=== PATIENT | male | born 1960 | race Caucasian/White ===

== ENCOUNTER 2024-09-30 08:53 | Outpatient (CLI) | payer BC, SELFPAY | END 2024-09-30 23:59 | disposition home or self-care (01) | LOC: LAB 08:55 | PROVIDERS: PCP Family Medicine; Visit Provider Internal Medicine Gastroenterology | DX: R10.13 Epigastric pain (principal); Z94.4 Liver transplant status ==

== ENCOUNTER 2024-10-20 08:18 | Outpatient (CLI) | payer BC, SELFPAY ==
--- NOTE | 2024-10-20 08:45 | CT_ITS ---
FINAL REPORT TECHNIQUE: Axial CT of the abdomen and pelvis, without and with IV contrast. This study was performed with techniques to keep radiation doses as low as reasonably achievable, (ALARA). Individualized dose reduction techniques using automated exposure control or adjustment of mA and/or kV according to the patient''s size were employed. CLINICAL HISTORY: Epigastric pain-prior pancreatitis/liver transplant pt states last pancreatitis was 10 years ago. FINDINGS: Abdomen: Lung bases are clear. There are surgical changes of liver transplant with a left hepatic lobe present. Portal vein is patent. Left kidney is heterogeneous with multiple mixed density masses, likely a combination of simple and complex cysts. There is left nephrolithiasis with a 17 mm renal pelvic stone. There is severe left renal scarring. Patient is status postsplenectomy. Pancreas, adrenal glands and right kidney are normal Postcontrast imaging of the kidneys shows no mass or obstruction. There is a central abdominal wall hernia containing omental fat. Abdominal wall defect measures 4 cm and is located 10 cm superior to the umbilicus. Bowel is unremarkable. No bowel obstruction or fluid collection is seen. Pelvis: The appendix is not visualized. There are no findings of appendicitis. There is mild urinary bladder wall thickening. Prostate is unremarkable. Pelvic bowel loops are unremarkable. No fluid collection or adenopathy is seen. IMPRESSION: No acute findings. Atrophic left kidney with multiple complex cysts and a nonobstructing stone. Reviewed, Interpreted and Dictated by Jose M Frias MD Transcribed by Asha Green Authenticated and [facility]
[2024-10-20] MEDS: SODIUM CHLORIDE 0.9% 10ML SYR (RAD ONLY) 10 ML IV (08:58)
[2024-10-20] MEDS: IOPAMIDOL-370 (76%);100ML BOTTLE 75 ML IV (08:58)
[2024-10-20] MEDS: BARIUM SULFATE(READI-CAT2);450ML BOTTLE 450 ML PO (08:58)
== END 2024-10-20 23:59 | disposition home or self-care (01) ==
PROVIDERS: PCP Family Medicine; Visit Provider Internal Medicine Gastroenterology
DX: N26.1 Atrophy of kidney (terminal) (principal); N20.0 Calculus of kidney; N28.1 Cyst of kidney, acquired; K85.90 Acute pancreatitis without necrosis or infection, unspecified; Z94.4 Liver transplant status
CPT/HCPCS: 74178; Q9967

== ENCOUNTER 2024-12-23 12:57 | Day surgery (SDC) | payer BC, SELFPAY ==
[2024-12-21 16:09] VITALS: BMI 33.0
[2024-12-23 13:17] VITALS: BP 114/75; PULSE 69; RESP 18; TEMP 36.3; O2SAT 96; BMI 33.0
--- NOTE | 2024-12-23 13:43 | EXP.HP ---
History of Present Illness *Admission Date: 12/23/24 *History of present illness: Mr. Chavez is a 64-year-old gentleman who is here for diagnostic EGD. 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 He did have a donor liver transplantation at [facility] in 2019 or 2018 and has done very well. He is on tacrolimus and mycophenolate and his liver chemistries have remained normal. They have not done any dose reduction of his immunosuppressants. The patient has had some bloating in the past with cold sweats. He did have an EGD with ma in June 2021 and this did show bile reflux with some linear nodular gastropathy. He was placed on BNO and has been on omeprazole. More recently he has had burning dyspepsia (not reflux or heartburn) in the mid epigastrium. This occurs usually before lunchtime and sometimes when he is active. He was previously placed on colestipol for his bile acid diarrhea. He does report some abdominal distention/bloating and occasional belching. He reports loose stools that we will alternate with regular and some bowel frequency. His states that he does get some shortness of breath or difficulty getting a good deep breath. He has had some minor baseline cardiac evaluation with PCP or prior to liver transplant. He recently did have to double his dose of omeprazole and these attacks of burning pain and discomfort have been going on for a couple of months but have only occurred 5 or 6 times. He does state that we did do fecal elastase testing in [place] but I do not have these results. He did have a colonoscopy with me in January 2020 and did not have any adenomatous polyps. He did have mild left-sided diverticulosis. He is on a fiber pill daily. [facility] Disclaimer: The information contained in this section may have been updated after the patient was seen, as this information can be updated by other users. Medical History ADHIKARI (nonalcoholic steatohepatitis) Surgical History History of splenectomy History of cholecystectomy Liver transplant recipient Family History Other No significant family history Social History (Updated 12/23/24 @ 13:19 by Randi Jean Baptiste RN) Smoking Status: Never smoker alcohol intake: never substance use type: denies use current occupational status: previously employed and retired Travel in the last 8 weeks?: Inside the [place] Review of Systems Review of Systems Review of systems (narrative): Negative *Cardiovascular Comments: Negative *Gastrointestinal Comments: Negative *Genitourinary Comments: Negative *Musculoskeletal Comments: Negative *Neurologic Comments: Negative Meds Home Medications and Allergies Home Medications ?Medication ?Instructions ?Recorded ?Confirmed ?Type alendronate 70 mg tablet (Fosamax) 70 mg PO WEEKLY 09/30/24 12/21/24 History allopurinol 300 mg tablet 300 mg PO DAILY 09/30/24 12/21/24 History ztyxf-c-ylnhydbixxeys 400 unit 400 unit PO TID PRN Gastric Reflux 09/30/24 12/21/24 History tablet (Beano) colchicine 0.6 mg tablet 0.6 mg PO BID 09/30/24 12/21/24 History colestipol 1 gram tablet (Colestid) 2 g PO HS 09/30/24 12/21/24 History magnesium oxide 500 mg PO BID 09/30/24 12/21/24 History mycophenolate mofetil 250 mg 250 mg PO BID 09/30/24 12/21/24 History capsule omeprazole 40 mg capsule,delayed 40 mg PO DAILY 09/30/24 12/21/24 History release prednisone 5 mg tablet 5 mg PO DAILY 09/30/24 12/21/24 History tacrolimus 0.5 mg capsule, 0.5 mg PO Q12H 09/30/24 12/21/24 History immediate-release tamsulosin 0.4 mg capsule (Flomax) 0.4 mg PO DAILY 09/30/24 12/21/24 History tramadol 50 mg tablet 50 mg PO HS PRN Pain 09/30/24 12/21/24 History trazodone 50 mg tablet 50 mg PO HS 09/30/24 12/21/24 History ursodiol 300 mg capsule 300 mg PO TID 09/30/24 12/21/24 History calcium 600 mg (as 1 tab PO DAILY 12/21/24 12/21/24 History carbonate)-vitamin D3 10 mcg (400 unit) tablet (Calcium 600 + D(3)) multivitamin 1 tab PO DAILY 12/21/24 12/21/24 History New Prescriptions to Start Prescriptions: Allergies Allergy/AdvReac Type Severity Reaction Status Date / Time hydrocodone AdvReac Other Verified 12/23/24 13:34 Exam Data for Last 24 hours Vital signs and Labs for Last 24 Hours: Temp Pulse Resp BP Pulse Ox O2 Del Method 97.4 F L 69 18 114/75 96 Room Air 12/23/24 13:17 12/23/24 13:17 12/23/24 13:17 12/23/24 13:17 12/23/24 13:17 12/23/24 13:17 I & O for Last 24 hours: Intake & Output 12/20/24 12/21/24 12/22/24 12/23/24 23:59 23:59 23:59 23:59 Weight 237 lb 237 lb *Routine HEENT Exam Head: Present normocephalic Eye: Present EOMI and PERRL ENT: Present mucous membranes moist *Routine Neck Exam Neck: Present supple *Routine Respiratory Exam Respiratory: Present CTA bilaterally *Routine Cardiovascular Exam Cardiovascular: Present RRR *Routine Abdominal Exam Abdominal: Present soft and normoactive bowel sounds; Absent tenderness *Routine Rectal Exam Rectal:: deferred *Routine Genitalia Exam Genitalia:: deferred *Routine Extremities Exam Extremities: Absent cyanosis, clubbing or edema *Routine Skin Exam Skin: Present warm; Absent rash *Routine Neurological Exam Neurological: Present alert and oriented X3 Assessment and Plan *Assessment and plan (1) Epigastric pain: Status: Acute Category: Medical Code(s): R10.13 - Epigastric pain (2) Dyspepsia: Status: Acute Category: Medical Code(s): R10.13 - Epigastric pain (3) Bloating: Status: Acute Category: Medical Code(s): R14.0 - Abdominal distension (gaseous) Plan A/P: 1. Epigastric abdominal pain/dyspepsia intermittently with bloating is the preprocedural diagnosis. The patient will be anesthetized/sedated using MAC sedation. The patient has been seen and examined. Cardiac and lung assessment prior to the examination is stable. Proceed with planned diagnostic EGD.
--- NOTE | 2024-12-23 13:43 | EXP.ANES.CKL ---
[facility] Disclaimer: The information contained in this section may have been updated after the patient was seen, as this information can be updated by other users. Medical History ADHIKARI (nonalcoholic steatohepatitis) Surgical History History of splenectomy History of cholecystectomy Liver transplant recipient Family History Other No significant family history Social History (Updated 12/23/24 @ 13:19 by Randi Jean Baptiste RN) Smoking Status: Never smoker alcohol intake: never substance use type: denies use current occupational status: previously employed and retired Travel in the last 8 weeks?: Inside the [facility] Anesthesia Checklist Patient Identification Patient Identification: Verbal (Name & ) Structural Data Admitted From: Home Planned Operative Procedure/s: egd Consent for Planned Operative Procedure(s) Verified: Yes Airway Assessment Mallampati Score:: Class II TMJ Mobility Assessed: Yes Dentition: Edentulous Neurological Assessment Level of Consciousness: Awake, Alert and Appropriate Anesthesia Plan Anesthesia Risk discussed: Yes Anesthesia Plan: Verified ASA Class: III Anesthesia Type: MAC
--- NOTE | 2024-12-23 13:44 | P.PCN_ITS ---
[facility] Procedure Note Date: 12/23/24 Time: 13:55 Procedure Note:: Upper Endoscopy Procedure Report: Esophagogastroduodenoscopy with cold biopsies Endoscopost: Joao Tello II, MD Referring Physician: Syeda Clark DO, [address], [place] [address] Date of Procedure: December 23, 2024 Equipment: Olympus GIF-1100 standard upper endoscope Sedation: MAC sedation Indications: Mr. Chavez is a 64-year-old gentleman who is here for diagnostic EGD. 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 He did have a donor liver transplantation at [facility] in 2019 or 2018 and has done very well. He is on tacrolimus and mycophenolate and his liver chemistries have remained normal. They have not done any dose reduction of his immunosuppressants. The patient has had some bloating in the past with cold sweats. He did have an EGD with [facility] in June 2021 and this did show bile reflux with some linear nodular gastropathy. He has been on omeprazole. More recently he has had burning dyspepsia (not reflux or heartburn) in the mid epigastrium. This occurs usually before lunchtime and sometimes when he is active. He was previously placed on colestipol for his bile acid diarrhea. He does report some abdominal distention/bloating and occasional belching. He reports loose stools that we will alternate with regular and some bowel frequency. His states that he does get some shortness of breath or difficulty getting a good deep breath. He has had some minor baseline cardiac evaluation with PCP or prior to liver transplant. He recently did have to double his dose of omeprazole and these attacks of burning pain and discomfort have been going on for a couple of months but have only occurred 5 or 6 times. He does state that we did do fecal elastase testing in [place] but I do not have these results. He did have a colonoscopy with me in January 2020 and did not have any adenomatous polyps. He did have mild left-sided diverticulosis. He is on a fiber pill daily. After his office visit in September 2024, I did recommend that he begin agul-bot-kwtqbmh herbal Iberogast and psyllium Konsyl. He has had resolution of his symptoms with the Iberogast and is doing much better. Procedure: Prior to the procedure, a history and physical exam was performed, and patient's medications and allergies were reviewed. The risks, benefits and alternatives of the sedation and procedure were discussed with the patient. All questions were answered and informed consent was obtained. The patient was brought to the procedure room. Patient identification and proposed procedure were verified by the physician and the nurse. The patient was placed in a left lateral decubitus position and the scope was passed under direct vision. Throughout the proce dure, the patient's blood pressure, pulse, and oxygen saturations were monitored continuously. The upper GI endoscopy was accomplished without difficulty. The patient tolerated the procedure well. Findings: The scope was passed directly into the upper esophagus and advanced to the third and fourth portion of the duodenum. A cold biopsy was taken from the third portion of the duodenum for disaccharidase assay. The post bulbar duodenum and duodenal bulb were normal with normal mucosa and conniventes. The scope was withdrawn through a normal duodenal bulb and pylorus into the stomach. There was some bile reflux with mild to moderate linear reactive gastropathy of the antrum. The body and fundus of the stomach were normal. Upon retroflexion there was no hiatal hernia. Cold biopsies were taken from the antrum. The scope was then withdrawn into the esophagus. There was no evidence of reflux esophagitis or Meier's. The remainder of the esophageal mucosa was normal. Impression: 1. Bile reflux with mild to moderate linear reactive gastropathy of antrum Plan: I will follow-up the biopsies and disaccharidase assay. The patient has had clinical improvement of his dyspepsia.
[2024-12-23 13:54] VITALS: BP 122/76; PULSE 66; RESP 16; TEMP 36.6; O2SAT 92
[2024-12-23 14:04] VITALS: BP 120/72; PULSE 64; RESP 16; O2SAT 92
[2024-12-23 14:14] VITALS: BP 142/87; PULSE 61; RESP 16; TEMP 36.6; O2SAT 93
[2024-12-23 14:24] VITALS: BP 138/71; PULSE 62; RESP 26; TEMP 36.6; O2SAT 94
[2024-12-28 16:25] LABS: Interpretation Notes (.); Lactase 23.14 (>/= 14.0); Maltase 161.8 (>/= 110.0); Palatinase 7.37 (>/= 8.5); Reference Notes (.); Sucrase 27.76 (>/= 25.0)
== END 2024-12-23 14:36 | disposition home or self-care (01) ==
PROVIDERS: PCP Family Medicine; Visit Provider Internal Medicine Gastroenterology
PROC: 0DJ08ZZ Inspection of Upper Intestinal Tract, Via Natural or Artificial Opening Endoscopic (ICD-10-PCS; CPT 43239; principal; 2024-12-23 14:30)
DX: K29.50 Unspecified chronic gastritis without bleeding (principal); Z88.5 Allergy status to narcotic agent; Z79.899 Other long term (current) drug therapy; Z94.4 Liver transplant status
CPT/HCPCS: 43239; 82657; J2003; J2704

== ENCOUNTER 2025-01-05 12:50 | Outpatient (CLI) | payer BC, SELFPAY ==
--- OUTSIDE RECORDS SUMMARY | 2024-11-06 05:30 | XMS_ITS ---
Author Organization [facility] Address [address] [place], [place] [id number] Care Team Providers Care Chemical Operations And Training Name Role Phone Syeda Clark Primary Care Provider [phone] Rosenda Ames Unavailable [phone] Results Component Value Reference Range Notes URIC ACID (905) Reviewed date:11/10/2024 03:07:31 PM Interpretation:Low Performing Lab:[facility], [facility] [id number], [id number] Del Munson Notes/Report: 0 0 0 URIC ACID 3.5 4.0-8.0 mg/dL Therapeutic ta rget for gout patients: <6.0 mg/dL SED RATE BY MODIFIED WESTERG CHELSIE (809) Reviewed date:11/10/2024 03:07:31 PM Interpretation:Normal Performing Lab:[facility] [id number], [place] [id number] Del Munson Notes/Report: 0 0 0 SED RATE BY MODIFIED CITLALY 2 < OR = 20 mm/h C-REACTIVE PROTEIN (4420) Reviewed date:11/10/2024 03:07:31 PM Interpretation:Normal Performing Lab:[facility], [facility] ([facility]) [id number], [place] [id number] Del Munson Notes/Report: 0 0 0 C-REACTIVE PROTEIN 3.8 <8.0 mg/L REASON FOR VISIT labs Problems Problem Type SNOMED Code ICD Code Onset Dates Problem Status W/U Status Risk Notes Problem Idiopathic chronic gout, multiple sites, 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) Active confirmed Problem Primary generalised osteoarthritis (422478893) Primary generalized (osteo)arthriti s (M15.0) Active confirmed Encounters Encounter Location Date Provider Diagnosis [facility] [address] [place], [place] [id number] 11/06/2024 Rosendaaidan Ames Rheumatoid arthritis with rheumatoid factor, unspecified M05.9 ; Idiopathic chronic gout, multiple sites, without tophus (tophi) M1A.09X0 ; Autoimmune hepatitis K75.4 ; Primary generalized (osteo)arthritis M15.0 and Encounter for therapeutic drug level monitoring Z51.81 Assessments Encounter Date Diagnosis (ICD Code) Assessment Notes Treatment Notes Treatment Clinical Notes Section Notes 11/06/2024 Rheumatoid arthritis with rheumatoid factor, unspecified (ICD-10 - M05.9) 11/06/2024 Idiopathic chronic gout, multiple sites, without tophus (tophi) (ICD-10 - M1A.09X0) 11/06/2024 Autoimmune hepatitis (ICD-10 - K75.4) 11/06/2024 Primary generalized (osteo)arthritis (ICD-10 - M15.0) 11/06/2024 Encounter for therapeutic drug level monitoring (ICD-10 - Z51.81) Plan Of Treatment Pending Test Test Name Order Date Urine toxicology 11/06/2024 Progress Notes * DIETERMARIESILVIADOB:1960 (64 yo M)Acc No.[id number]:11/06/2024 Progress Note Patient: SILVIA GEORGE Provider: Ofelia Ames PA-C :1960 A ge:64 Y S ex:Male Date:11/06/2024 Address:[address] [place], [place] [id number] Pcp:Syeda Clark Subjective: * Chief Complaints: * 1 . Labs. * HPI: P EG: labs order by [facility]. * Medical History: Objective: * Vitals: Assessment: * Assessment: 1. R heumatoid arthritis with rheumatoid factor, unspecified - M05.9 (Primary) 2 . I diopathic chronic gout, multiple sites, without tophus (tophi) - M1A.09X0 3 . A utoimmune hepatitis - K75.4 4 . P rimary generalized (osteo)arthritis - M15.0 5 . E ncounter for therapeutic drug level monitoring - Z51.81 Plan: * Treatment: 2. I diopathic chronic gout, multiple sites, without tophus (tophi) L AB: URIC ACID (905) (Collection Date & Time - 11/06/2024 10:29 AM) 3. E ncounter for therapeutic drug level monitoring L AB: Urine toxicology * Procedures: P t labs drawn with 23g needle to the LA. Patient tolerated well and pressure dressing applied. PARKER ARVIZU. * Procedure Codes: 3 6415 VENIPUNCT, ROUTINE* * Billing Information: * Visit Code: * Procedure Codes: 36464 VENIPUNCT, ROUTINE*. * Sign off status: Completed true * Provider: Ofelia Ames PA-C Date: 0 11/06/2024 Generated for Giovani jacobs/Krishna/Viraj on: 0 01/05/2025 12:53 PM EDT
--- OUTSIDE RECORDS SUMMARY | 2025-01-05 12:53 | XMS_ITS | Encounter Summary ---
Author Organization [email or web address] ([place], [place], [place], [place]) Address [address] [place] [address] Care Team Providers Care X Ray Examiner Of Aircraft Name Role Phone Darek Rodas MD Primary Care Provider [phone] Reason for Referral * CAT Scan (Routine) - Closed Specialty Diagnoses / Procedures Referred By Contac t Referred To Contact Radiology Diagnoses Nonintractable headache, unspecified chronicity pattern, unspecified headache type Procedures CT brain without IV contrast Darek Rodas MD [address] [place] [address] Phone: tel: fax: Referral ID Status Reason Start Date Expiration Date Visits Re quested Visits Authorized [id number] Closed 07/24/2022 01/20/2023 1 1 Encounter Details Date Type Department Care Team (Latest Contact Info) Description 07/24/2022 Outside Orders [facility] Central Scheduling [address] [place] [address] Darek Rodas MD [address] [place] [address] Nonintractable headache, unspecified chronicity pattern, unspecified headache type (Primary Dx) Social History Tobacco Use Types Packs/Day Years Used Date Smoking Tobacco: Never Assessed Sex and Gender Information Value Date Recorded Sex Assigned at Not on file Legal Sex Male 5:20 PM CDT Gender Identity Not on file Sexual Orientation Not on file documented as of this encounter Plan of Treatment Not on file documented as of this encounter Results * CT brain without IV contrast (07/24/2022 12:33 PM EST) Anatomical Region Laterality Modality Brain, Head Computed Tomogra phy (CT) 07/24/2022 3:50 PM EST Impressions 07/24/2022 4:10 PM EST No acute intracranial process. Images reviewed, interpreted, and dictated by Seferino Riggs MD Narrative 07/24/2022 4:10 PM EST Name: SILVIA CARRILLO : [address] HISTORY: Headache. Prior history of liver transplant COMPARISON: None . TECHNIQUE: Multiple axial CT images were performed from the foramen magnum to the vertex without enhancement. Individualized dose reduction techniques using automated exposure control or adjustment of the mA and/or kV according to patient size were employed. FINDINGS: The ventricles are normal in size. There is no evidence of hemorrhage . No masses or edema identified. No abnormal extra-axial fluid is seen. Lobular mucoperiosteal thickening in the left maxillary and right sphenoid sinus is consistent with chronic sinusitis. Procedure Note Seferino Riggs MD - 07/24/2022 Name: SILVIA CARRILLO : [address] HISTORY: Headache. Prior history of liver transplant COMPARISON: None . TECHNIQUE: Multiple axial CT images were performed from the foramen magnum to the vertex without enhancement. Individualized dose reduction techniques using automated exposure control or adjustment of the mA and/or kV according to patient size were employed. FINDINGS: The ventricles are normal in size. There is no evidence of hemorrhage . No masses or edema identified. No abnormal extra-axial fluid is seen. Lobular mucoperiosteal thickening in the left maxillary and right sphenoid sinus is consistent with chronic sinusitis. IMPRESSION: No acute intracranial process. Images reviewed, interpreted, and dictated by Seferino Riggs MD Darek Rodas MD IMG CT ORDERABLES Final Result documented in this encounter Visit Diagnoses Diagnosis Nonintractable headache, unspecified chronicity pattern, unspecified headache type- Primary Nonintractable headache, unspecified chronicity pattern, unspecified headache type documented in this encounter Care Teams X Ray Examiner Of Aircraft Relationship Specialty Start Date End Date Darek Rodas MD PCP - General Family Medicine 07/24/22 documented as of this encounter
--- OUTSIDE RECORDS SUMMARY | 2025-01-05 12:53 | XMS_ITS | Encounter Summary ---
Author Organization [employer] ([place], [place], [place], [place]) Address [address] [place] [address] Care Team Providers Care Health Sciences Department Chair Name Role Phone Darek Rodas MD Primary Care Provider [phone] Encounter Details Date Type Department Care Team (Late st Contact Info) Description 01/06/2024 Outside Orders [facility] Admitting [address] [place] [id number] Syeda Clark, DO [address] [place] [phone] Left wrist pain (Primary Dx) Social History Tobacco Use Types Packs/Day Years Used Date Smoking Tobacco: Never Assessed Employment Answer Date Recorded Help finding and keeping a job Not on file 0 06/20/2023 Family and Community Support Answer Surjit e Recorded Help with Day to Day Activities Not on file 06/20/2023 Feeling Lonely or Isolated Not on file 06/20 Educational Attainment Answer Date Thierno rded Speak language other than Telugu at home Not on file 06/20/2023 Want help with school or training Not on file 06/20/2023 Substance Use Answer Date Recorded Used prescription meds for non-medical reasons N ot on file 06/20/2023 Used illegal drugs past 12 months Not on file 06/20/2023 Sex and Gender Information Value Date Recorded Sex Assigned at Not on file Legal Sex Male 5:20 PM CDT Gender Identity Not on file Sexual Orientation Not on file documented as of this encounter Plan of Treatment Not on file documented as of this encounter Visit Diagnoses Diagnosis Left wrist pain- Primary Pain in joint, forearm documented in this encounter Care Teams Health Sciences Department Chair Relationship Specialty Start Date End Date Darek Rodas MD PCP - General Family Medicine 07/24/22 documented as of this encounter
--- OUTSIDE RECORDS SUMMARY | 2025-01-05 12:53 | XMS_ITS | Encounter Summary ---
[facility] Organization [facility] Address [address] [place] [address] Care Team Providers Care Special Projects Coordinator Name Role Phone Syeda Clark MD Primary Care Provider [phone] Encounter Details Date Type Department Care Team (Late st Contact Info) Description 11/10/2024 Results Follow-Up [facility] [address] [address] Michi Torres DO [address] [id number] Social History Tobacco Use Types Packs/Day Years Used Date Smoking Tobacco: Never Passive Smoke Exposure: Past Smokeless Tobacco: Never Alcohol Use Standard Drinks/Week Comments Never 0 (1 standard drink = 0.6 oz pur e alcohol) Sex and Gender Information Value Date Recorded Sex Assigned at Male 09/23/2023 12:22 PM EDT Legal Sex Male 11:58 AM EDT Gender Identity Male 09/23/2023 12:22 PM EDT Sexual Orientation Not on file documented as of this encounter Plan of Treatment Upcoming Encounters Date Type Department Care Team (Late st Contact Info) Description 04/05/2025 8:30 AM EST Office Visit [facility] [address] [address] Mariaelena Coyle APRN [address] [id number] documented as of this encounter Visit Diagnoses Not on filedocumented in this encounter Care Teams Special Projects Coordinator Relationship Specialty Start Date End Date Syeda Clark MD [address] [place] [address] PCP - General Family Medicine 08/21/23 documented as of this encounter
--- OUTSIDE RECORDS SUMMARY | 2025-01-05 12:53 | XMS_ITS | Encounter Summary ---
Author Organization [employer] ([place], [place], [place], [place]) Address [address] [place] [address] Care Team Providers Care Polishing Wheel Repairer Name Role Phone aDrek Rodas MD Primary Care Provider [phone] Encounter Details Date Type Department Care Team (Late st Contact Info) Description 10/01/2024 Outside Orders [facility] Admitting [address] [place] [address] Elisha GARCIA Md, MD Joao [address] [facility] [address] [place] [id number] Epigastric pain (Primary Dx) Social History Tobacco Use [...] Date Thierno rded Speak language other than [place]er at home Not on file 06/20/2023 Want [...] documented as of this encounter Results * Pancreatic Elastase Fecal by Immunoassay(SENDOUT) (10/01/2024 4:41 PM EDT) Pancreatic Elastase, Fecal 756 >=100 ug/g 10/07/2024 9:05 AM EDT [facility] Comment: REFERENCE INTERVAL: Pancreatic Elastase Fecal by Immunoassay Less than 100 ug/g............Severe insufficiency 100 - 199 ug/g................Moderate insufficiency 200 ug/g or greater...........Normal INTERPRETIVE INFORMATION: Pancreatic Elastase Fecal by Immunoassay Reference intervals do not apply for infants less than one month old. Performed By: [facility] [address] [id number] Decorator Mannequin: José Miguel Jones MD, PhD CLIA Number: [id number] Stool 10/01/2024 4:41 PM EDT 10/01/2024 4:41 PM EDT us Joao Tello II, Md, MD MICROBIOLOGY - GENERAL ORD ERABLES Final Result [facility] [address] [place] [address], [facility] [phone] documented in this encounter Visit Diagnoses Diagnosis Epigastric pain- Primary Abdominal pain, epigastric documented in this encounter Care Teams Polishing Wheel Repairer Relationship Specialty Start Date End Date Darek Rodas MD PCP - General Family Medicine 07/24/22 documented as of this encounter
--- OUTSIDE RECORDS SUMMARY | 2025-01-05 12:53 | XMS_ITS | Referral Summary ---
Author Organization [employer] ([place], [place], [place], [place]) Address [address] [place] [address] Care Team Providers Care Global Program Director Name Role Phone Darek Rodas MD Primary Care Provider [phone] Social History Tobacco Use Types Packs/Day Years [...] Date Thierno rded Speak language other than Luxembourger at home Not on file 06/20/2023 Want [...] on file Sexual Orientation Not on file Plan of Treatment Not on file Insurance BLUE CROSS/BLUE SHIELD Care Teams Global Program Director Relationship Specialty Start Date End Date Darek Rodas MD PCP - General Family Medicine 07/24/22
--- OUTSIDE RECORDS SUMMARY | 2025-01-05 12:53 | XMS_ITS | Clinical Summary ---
Author Organization [employer] ([place], [place], [place], [place]) Address [address] [place] [address] Care Team Providers Care Systems Eng Name Role Phone Darek Rodas MD Primary Care Provider [phone] Social History Tobacco Use Types Packs/Day Years [...] Date Thierno rded Speak language other than Turkmen at home Not on file 06/20/2023 Want [...] Orientation Not on file Plan of Treatment Health Maintenance Due Date Last Done Comments CT Colonography 1961 Colonoscopy 1961 Colorectal Cancer Screening 1961 FOBT/FIT 1961 Fit-DNA (Cologuard) 1961 Sigmoidoscopy 1961 Depression Screening (12+) 1973 Tobacco Cessation Counseling and Screening (12+) 1973 HIV Screening 1976 Hepatitis C Screening 1979 Lipid Panel 1996 Pneumococcal 50+ years (3 of 3 - PCV20 or PCV21) 09/11/2023 09/10/2018, 07/09/2018 COVID-19 VACCINE (6 - 2023-2 5 season) 2024 04/30/2021, 12/26/2020, 12/06/2020, Additional history exists Influenza Vaccine (#1) 2025 , 03/11/2021, 03/23/2019 DTAP/TDAP/TD VACCINES (3 - T d or Tdap) 05/30/2028 05/30/2018, 05/30/2018 Respiratory Syncytial Virus (RSV) Adult or (1 - 1-dose 75+ series) 2036 Shingles Vaccine (Zoster) Completed 06/05/2019, Insurance BLUE CROSS/BLUE SHIELD Care Teams Systems Eng Relationship Specialty Start Date End Date Darek Rodas MD PCP - General Family Medicine 07/24/22
--- OUTSIDE RECORDS SUMMARY | 2025-01-05 12:53 | XMS_ITS ---
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
--- OUTSIDE RECORDS SUMMARY | 2025-01-05 12:53 | XMS_ITS | Patient Health Record ---
Author Organization [place] [facility] Address [address] [facility] [address] [place], [place] [id number] Care Team Providers Care Ichthyologist Name Role Phone Eduardo, Syeda Primary Care Provider [phone] Rosenda Ames Unavailable [phone] Allergies No Known Allergies Results Component Value Reference Range Notes TACROLIMUS AND SIROLIMUS, LC /MS/MS Reviewed date:10/19/2024 04:18:03 PM Interpretation:Normal Performing Lab:[facility] [employer], Careerminds GroupAypxYT[address] [place] Notes/Report: 0 0 0 0 TACROLIMUS, HIGHLY SENSITIVE, LC/MS/MS 8.1 No definitive therapeutic or toxic ranges have been established. Optimal blood drug levels are influenced by type of transplant, patient response, time post- transplant, co-administration of other drugs, and drug formulation. The following trough range is a suggested guideline: 5.0-20.0 mcg/L. SIROLIMUS, LC/MS/MS <1.0 3.0-18.0 ng/mL Verified by repeat analysis. This test was developed and its analytical performance characteristics have been determined by [employer] It has not been cleared or approved by the FDA. This assay has been validated pursuant to the CLIA regulations and is used for clinical purposes. AMMONIA (P) (5509) Reviewed date:10/19/2024 04:18:03 PM Interpretation:Abnormal Performing Lab:[facility] [employer]-[address], GridGain SystemsTgymIP[address] [place] Notes/Report: FASTING: UNKNOWN AMMONIA (P) TNP TEST NOT PERFORMED The specimen exceeds stability for the test requested. CT Scan : Chest without cont rast Reviewed date:04/20/2024 11:24:06 AM Interpretation: Performing Lab: Notes/Report: C-REACTIVE PROTEIN (4420) Reviewed date:11/10/2024 03:07:31 PM Interpretation:Normal Performing Lab:ADRIANA, [facility]-[address], [place] HkizPB[address] [place]son Notes/Report: 0 0 0 C-REACTIVE PROTEIN 3.8 <8.0 mg/L SED RATE BY MODIFIED WESTERG CHELSIE (809) Reviewed date:11/10/2024 03:07:31 PM Interpretation:Normal Performing Lab:CB, [facility]-[address], [place] CzkdBM[address] [place] Notes/Report: 0 0 0 SED RATE BY MODIFIED WESTERGREN 2 < OR = 20 mm/h URIC ACID (905) Reviewed date:11/10/2024 03:07:31 PM Interpretation:Low Performing Lab:ADRIANA, [employer]-[address], Sean CalderónTxhyGT[address] [place] Notes/Report: 0 0 0 URIC ACID 3.5 4.0-8.0 mg/dL Therapeutic ta rget for gout patients: <6.0 mg/dL LIPASE (606) Reviewed date:10/19/2024 04:20:02 PM Interpretation:Normal Performing Lab:ADRIANA, [employer]-[address], [place] LbeeLZ[address] [place] Notes/Report: 0 0 0 0 LIPASE 22 7-60 U/L CBC (INCLUDES DIFF/PLT) (639 9) Reviewed date:10/19/2024 04:20:02 PM Interpretation:Abnormal Performing Lab:CB, [employer]-[facility] [address], [place] PqzcXL[address] [place] Notes/Report: 0 0 0 0 WHITE BLOOD CELL COUNT 9.5 3.8-10.8 Thousand/ uL RED BLOOD CELL COUNT 5.18 4.20-5.80 Million/uL HEMOGLOBIN 14.6 13.2-17.1 g/dL HEMATOCRIT 46.8 38.5-50.0 % MCV 90.3 80.0-100.0 fL MCH 28.2 27.0-33.0 pg MCHC 31.2 32.0-36.0 g/dL For adults, a slight decrease in the calculated MCHC value (in the range of 30 to 32 g/dL) is most likely not clinically significant; however, it should be interpreted with caution in correlation with other red cell parameters and the patient's clinical condition. RDW 15.0 11.0-15.0 % PLATELET COUNT 294 140-400 Thousand/uL MPV 13.2 7.5-12.5 fL ABSOLUTE NEUTROPHILS 6204 7750-9939 cells/uL ABSOLUTE LYMPHOCYTES 2394 850-3900 cells/uL ABSOLUTE MONOCYTES 760 200-950 cells/uL ABSOLUTE EOSINOPHILS 67 15-500 cells/uL ABSOLUTE BASOPHILS 76 0-200 cells/uL NEUTROPHILS 65.3 LYMPHOCYTES 25.2 MONOCYTES 8.0 EOSINOPHILS 0.7 BASOPHILS 0.8 PHOSPHATE ( PHOSPHORUS) (7 18) Reviewed date:10/19/2024 04:20:02 PM Interpretation:Abnormal Performing Lab:ADRIANA, [employer]-D[facility] Qqtj[address] UpTotePenBoutiqueNew Ulm Medical CenterKzskGG[address] [place] Notes/Report: 0 0 0 0 PHOSPHATE ( PHOSPHORUS) 5.0 2.5-4.5 mg/dL COMPREHENSIVE METABOLIC PANE L (36720) Reviewed date:10/19/2024 04:20:02 PM Interpretation:Abnormal Performing Lab:ADRIANA, [employer]-[address]oe[address] MobuleNew Ulm Medical CenterIuyvBP[address] [place] Notes/Report: 0 0 0 0 GLUCOSE 99 65-99 mg/dL Fasting reference interval UREA NITROGEN (BUN) 24 7-25 mg/dL CREATININE 1.57 0.70-1.35 mg/dL EGFR 49 > OR = 60 mL/min/1.73m2 BUN/CREATININE RATIO 15 6-22 (calc) SODIUM 139 135-146 mmol/L POTASSIUM 4.6 3.5-5.3 mmol/L CHLORIDE 104 98-110 mmol/L CARBON DIOXIDE 22 20-32 mmol/L CALCIUM 10.1 8.6-10.3 mg/dL PROTEIN, TOTAL 7.4 6.1-8.1 g/dL ALBUMIN 4.7 3.6-5.1 g/dL GLOBULIN 2.7 1.9-3.7 g/dL (calc) ALBUMIN/GLOBULIN RATIO 1.7 1.0-2.5 (calc) BILIRUBIN, TOTAL 0.3 0.2-1.2 mg/dL ALKALINE PHOSPHATASE 56 35-144 U/L AST 19 10-35 U/L ALT 18 9-46 U/L Urinalysis Reviewed date:10/13/2024 04:09:39 PM Interpretation: Performing Lab: Notes/Report: Urine-Color rl Appearance clear Specific [place] 1.030 pH 6.0 Glucose neg Urine Protein 0.15 Occult Blood neg Bilirubin 17 Urobilinogen,Semi-Qn 3.5 Nitrite, Urine neg Ketones neg WBC Esterase neg TSH (899) Reviewed date:10/05/2024 03:31:38 PM Interpretation:Normal Performing Lab:CB, [facility], GridGain SystemsInaiND[address] [place] Notes/Report: 0 0 0 0 TSH 1.39 0.40-4.50 mIU/L LIPASE (606) Reviewed date:10/05/2024 03:31:38 PM Interpretation:Normal Performing Lab:CB, [facility], GridGain SystemsHalsYW[address] [place] Notes/Report: 0 0 0 0 LIPASE 32 7-60 U/L CBC (INCLUDES DIFF/PLT) (639 9) Reviewed date:10/05/2024 03:31:38 PM Interpretation:Normal Performing Lab:CB, [facility]-[address], GridGain SystemsLaciHO[address] [place] Notes/Report: 0 0 0 0 WHITE BLOOD CELL COUNT 7.1 3.8-10.8 Thousand/ uL RED BLOOD CELL COUNT 5.06 4.20-5.80 Million/uL HEMOGLOBIN 14.2 13.2-17.1 g/dL HEMATOCRIT 45.6 38.5-50.0 % MCV 90.1 80.0-100.0 fL MCH 28.1 27.0-33.0 pg MCHC 31.1 32.0-36.0 g/dL value (in the range of 30 to 32 g/dL) is most likely not clinically significant; however, it should be interpreted with caution in correlation with other red cell parameters and the patient's clinical condition. For adults, a slight decrease in the calculated MCHC RDW 15.2 11.0-15.0 % PLATELET COUNT 309 140-400 Thousand/uL MPV 12.8 7.5-12.5 fL ABSOLUTE NEUTROPHILS 4565 6918-6792 cells/uL ABSOLUTE LYMPHOCYTES 4164 600-2203 cells/uL ABSOLUTE MONOCYTES 568 200-950 cells/uL ABSOLUTE EOSINOPHILS 92 15-500 cells/uL ABSOLUTE BASOPHILS 71 0-200 cells/uL NEUTROPHILS 64.3 LYMPHOCYTES 25.4 MONOCYTES 8.0 EOSINOPHILS 1.3 BASOPHILS 1.0 COMPREHENSIVE METABOLIC PANE (88499) Reviewed date:10/05/2024 03:31:38 PM Interpretation:Abnormal Performing Lab:ADRIANA, [employer], GridGain SystemsNjjcVA[address] [place] Notes/Report: 0 0 0 0 GLUCOSE 115 65-99 mg/dL Fasting reference interval For someone without known diabetes, a glucose value between 100 and 125 mg/dL is consistent with prediabetes and should be confirmed with a follow-up test. UREA NITROGEN (BUN) 21 7-25 mg/dL CREATININE 1.20 0.70-1.35 mg/dL EGFR 68 > OR = 60 mL/min/1.73m2 BUN/CREATININE RATIO SEE NOTE: 6-22 (calc) Not Reported: BUN and Creatinine are within reference range. SODIUM 139 135-146 mmol/L POTASSIUM 4.4 3.5-5.3 mmol/L CHLORIDE 104 98-110 mmol/L CARBON DIOXIDE 26 20-32 mmol/L CALCIUM 10.0 8.6-10.3 mg/dL PROTEIN, TOTAL 7.1 6.1-8.1 g/dL ALBUMIN 4.5 3.6-5.1 g/dL GLOBULIN 2.6 1.9-3.7 g/dL (calc) ALBUMIN/GLOBULIN RATIO 1.7 1.0-2.5 (calc) BILIRUBIN, TOTAL 0.3 0.2-1.2 mg/dL ALKALINE PHOSPHATASE 51 35-144 U/L AST 19 10-35 U/L ALT 15 9-46 U/L CBC (INCLUDES DIFF/PLT) (639 9) Reviewed date:08/26/2024 09:58:59 AM Interpretation:Abnormal Performing Lab:ADRIANA, [facility] [address], CriteoSwhuFA[address] [place] Notes/Report: 0 0 0 WHITE BLOOD CELL COUNT 7.9 3.8-10.8 Thousand/ uL RED BLOOD CELL COUNT 5.13 4.20-5.80 Million/uL HEMOGLOBIN 14.1 13.2-17.1 g/dL HEMATOCRIT 45.2 38.5-50.0 % MCV 88.1 80.0-100.0 fL MCH 27.5 27.0-33.0 pg MCHC 31.2 32.0-36.0 g/dL For adults, a slight decrease in the calculated MCHC value (in the range of 30 to 32 g/dL) is most likely not clinically significant; however, it should be interpreted with caution in correlation with other red cell parameters and the patient's clinical condition. RDW 14.4 11.0-15.0 % PLATELET COUNT 330 140-400 Thousand/uL MPV 12.5 7.5-12.5 fL ABSOLUTE NEUTROPHILS 3397 9980-9682 cells/uL ABSOLUTE LYMPHOCYTES 3002 850-3900 cells/uL ABSOLUTE MONOCYTES 837 200-950 cells/uL ABSOLUTE EOSINOPHILS 577 15-500 cells/uL ABSOLUTE BASOPHILS 87 0-200 cells/uL NEUTROPHILS 43 LYMPHOCYTES 38.0 MONOCYTES 10.6 EOSINOPHILS 7.3 BASOPHILS 1.1 PHOSPHATE ( PHOSPHORUS) (7 18) Reviewed date:08/26/2024 09:58:59 AM Interpretation:Normal Performing Lab:ADRIANA, [employer], [facility] HospitalNlqkNO[address] Del Munson Notes/Report: 0 0 0 PHOSPHATE ( PHOSPHORUS) 2.7 2.5-4.5 mg/dL COMPREHENSIVE METABOLIC PANE L (12409) Reviewed date:08/26/2024 09:58:59 AM Interpretation:Normal Performing Lab:ADRIANA, [address], [facility] HospitalHrypBE[address] [place] Notes/Report: 0 0 0 GLUCOSE 82 65-99 mg/dL Fasting reference interval UREA NITROGEN (BUN) 19 7-25 mg/dL CREATININE 1.18 0.70-1.35 mg/dL EGFR 69 > OR = 60 mL/min/1.73m2 BUN/CREATININE RATIO SEE NOTE: 6-22 (calc) Not Reported: BUN and Creatinine are within reference range. SODIUM 139 135-146 mmol/L POTASSIUM 4.2 3.5-5.3 mmol/L CHLORIDE 106 98-110 mmol/L CARBON DIOXIDE 24 20-32 mmol/L CALCIUM 9.5 8.6-10.3 mg/dL PROTEIN, TOTAL 6.7 6.1-8.1 g/dL ALBUMIN 4.3 3.6-5.1 g/dL GLOBULIN 2.4 1.9-3.7 g/dL (calc) ALBUMIN/GLOBULIN RATIO 1.8 1.0-2.5 (calc) BILIRUBIN, TOTAL 0.5 0.2-1.2 mg/dL ALKALINE PHOSPHATASE 51 35-144 U/L AST 16 10-35 U/L ALT 12 9-46 U/L Flu Reviewed date:08/04/2024 09:12:21 AM Interpretation:Negative Performing Lab: Notes/Report: Negative T3, FREE (91074) Reviewed date:03/03/2024 10:26:53 AM Interpretation:Normal Performing Lab:[facility] [employer] IncJeremy V[place] [address] [place] Notes/Report: 0 0 0 0 0 0 0 T3, FREE 4.0 2.3-4.2 pg/mL TSH (899) Reviewed date:03/03/2024 10:26:53 AM Interpretation:Normal Performing Lab:[facility] [employer] IncDrimmi [address] StreetteAmanda [address] [address] Del [place]son Notes/Report: 0 0 0 0 0 0 0 TSH 2.90 0.40-4.50 mIU/L T4, FREE (866) Reviewed date:03/03/2024 10:26:53 AM Interpretation:Normal Performing Lab:[facility] [employer] StreetteAmanda Ville [address] Del [place]son Notes/Report: 0 0 0 0 0 0 0 T4, FREE 1.3 0.8-1.8 ng/dL PHOSPHATE ( PHOSPHORUS) (7 18) Reviewed date:03/03/2024 10:26:53 AM Interpretation:Normal Performing Lab:[facility] [employer] IncDrimmi [address]teAmanda [address] [address] Del [place] Notes/Report: 0 0 0 0 0 0 0 PHOSPHATE ( PHOSPHORUS) 2.8 2.5-4.5 mg/dL COMPREHENSIVE METABOLIC PANE L (21187) Reviewed date:03/03/2024 10:26:53 AM Interpretation:Normal Performing Lab:CB, [facility]-Sean Parkere[address]teSaint Peter's University HospitalSeanTwqjYN[address] Del [place] Notes/Report: 0 0 0 0 0 0 0 GLUCOSE 90 65-99 mg/dL Fasting reference interval UREA NITROGEN (BUN) 20 7-25 mg/dL CREATININE 1.31 0.70-1.35 mg/dL EGFR 62 > OR = 60 mL/min/1.73m2 BUN/CREATININE RATIO SEE NOTE: 6-22 (calc) Not Reported: BUN and Creatinine are within reference range. SODIUM 143 135-146 mmol/L POTASSIUM 4.3 3.5-5.3 mmol/L CHLORIDE 106 98-110 mmol/L CARBON DIOXIDE 22 20-32 mmol/L CALCIUM 10.0 8.6-10.3 mg/dL PROTEIN, TOTAL 7.5 6.1-8.1 g/dL ALBUMIN 4.6 3.6-5.1 g/dL GLOBULIN 2.9 1.9-3.7 g/dL (calc) ALBUMIN/GLOBULIN RATIO 1.6 1.0-2.5 (calc) BILIRUBIN, TOTAL 0.5 0.2-1.2 mg/dL ALKALINE PHOSPHATASE 47 35-144 U/L AST 17 10-35 U/L ALT 11 9-46 U/L TESTOSTERONE, FREE, BIOAVAIL ABLE AND TOTAL, MS (52679) Reviewed date:03/03/2024 10:26:53 AM Interpretation:Normal Performing Lab:Z3E, [facility]-[address] [place] [address], [address] HospitalSdqetvmxjmFP[address] Taisha Villasenor MD,PhD Notes/Report: 0 0 0 0 0 0 0 ALBUMIN 4.3 3.6-5.1 g/dL SEX HORMONE BINDING GLOBULIN 39.7 22-77 nmol/L TESTOSTERONE, FREE 42.5 46.0-224.0 pg/mL TESTOSTERONE,BIOAVAILABLE 83.8 110.0-575.0 ng/ dL TESTOSTERONE, TOTAL, MS 558 [address]-0550 ng/dL [facility] med fusion [address] [address],[address] [facility] [address] Taisha Villasenor MD, PhD Men with clinically significant hypogonadal symptoms and testosterone values repeatedly in the range of the 200-300 ng/dL or less, may benefit from testosterone treatment after adequate risk and benefits counseling. For additional information, please refer to [email or web address] (This link is being provided for informational/educational purposes only.) (Note) This test was developed and its analytical performance characteristics have been determined by [employer]. It has not been cleared or approved by the FDA. This assay has been validated pursuant to the CLIA regulations and is used for clinical purposes. X ray : Wrist, left Reviewed date:01/06/2024 11:35:11 AM Interpretation: Performing Lab: Notes/Report: COMPREHENSIVE METABOLIC PANE L (49285) Reviewed date:11/02/2024 10:27:07 AM Interpretation:Normal Performing Lab:ADRIANA, [employer]-[address], [place]mi ErtdKH[address] Del Munson Notes/Report: 0 GLUCOSE 91 65-99 mg/dL Fasting reference interval UREA NITROGEN (BUN) 17 7-25 mg/dL CREATININE 1.26 0.70-1.35 mg/dL EGFR 64 > OR = 60 mL/min/1.73m2 BUN/CREATININE RATIO SEE NOTE: 6-22 (calc) Not Reported: BUN and Creatinine are within reference range. SODIUM 141 135-146 mmol/L POTASSIUM 4.2 3.5-5.3 mmol/L CHLORIDE 105 98-110 mmol/L CARBON DIOXIDE 27 20-32 mmol/L CALCIUM 9.7 8.6-10.3 mg/dL PROTEIN, TOTAL 6.9 6.1-8.1 g/dL ALBUMIN 4.3 3.6-5.1 g/dL GLOBULIN 2.6 1.9-3.7 g/dL (calc) ALBUMIN/GLOBULIN RATIO 1.7 1.0-2.5 (calc) BILIRUBIN, TOTAL 0.4 0.2-1.2 mg/dL ALKALINE PHOSPHATASE 51 35-144 U/L AST 16 10-35 U/L ALT 13 9-46 U/L [facility] ECG Reviewed date:10/01/2024 02:47:07 PM Interpretation: Performing Lab: Notes/Report: ECGDiastolicBP 76 ECGHr 74 ECGPRInterval 168 ECGPWaveAxis 32 ECGQRSDuration 90 ECGQrsWaveAxis 3 ECGQTcInterval 384 ECGQTInterval 360 ECGSystolicBP 124 ECGTWaveAxis 34 RR_DiastolicBP 0 RR_MaxRRInterval 0 RR_MeanHR 0 RR_MeanRRInterval 0 RR_MinRRInterval 0 RR_NumBeats 0 RR_NumNormalBeats 0 RR_SystolicBP 0 Reason For Referral Reason Refer to PT for eval uation and treatment of left wrist pain. Diagnosis 1 Left wrist pain (M25 .532) Referral Organization [facility] Referring Provider First Name Syeda Referring Provider Last Name Eduardo Referring Provider [facility] Referred Provider Specialty Physical The rapist Referral Priority Routine Reason Refer to cardiology for worsening shortness of breath on exertion. Hx of liver transplant. Diagnosis 1 Shortness of breath (R06.02) Referral Organization [facility] [employer] Referring Provider First Name Syeda Referring Provider Last Name Eduardo [facility]erred Provider Specialty Cardiology General Notes Celi Dobbs 10/09 10:15:33 AM >REFERRAL SENT TO DR CHILDRESS- OFFICE TO CALL PT WITH APPT Referral Priority Routine Medications Medication SIG (Take, Route, Frequency, Duration) Notes Start Date End Date Status Colestipol HCl 1 GM TAKE (2) TABLETS BY MOUTH ONCE DAILY AT BEDTIME.; Duration: 30 Active Tamsulosin HCl 0.4 mg TAKE (1) CAPSULE B Y MOUTH ONCE DAILY; Duration: 30 Active Magnesium 400 MG as directed Orally twice a day Active predniSONE 5 MG 1 tablet Orally Once a day; Duration: 90 days Active Allopurinol 300 MG 1 tablet Oral Once a day; Duration: 30 Active Alendronate Sodium 70 mg TAKE 1 TABLET B Y MOUTH ONCE WEEKLY IN THE MORNING WITH FULL GLASS OF WATER AT LEAST 30 MIN BEFORE 1ST FOOD, BEVERAGE OR MEDICATION OF DAY --DO NOT LAY DOWN FOR 1 HOUR; Duration: 28 Active Tacrolimus 1 MG 3 tablets Orally twi ce a day; Duration: 90 days Active Colchicine 0.6 MG 1 tablet Oral once a day; Duration: 30 Active Calcium 600 MG 1 tablet with meals Orally Twice a day Active Aspirin 81 MG 1 tablet Orally Once a day Active Multi Vitamin - 1 tablet Orally Once a day Active Mycophenolate Mofetil 250 MG 2 capsules Orally twice daily; Duration: 90 days Active Assure Luc Safety Lancet 28G - once daily twice daily; Duration: 90 days 02/24/2024 Active Ursodiol 300 MG 1 capsule Orally thr ee times a day; Duration: 90 days Active Glucose Meter Test - as directed In Vitr o once daily; Duration: 90 days 02/24/2024 Active traMADol HCl 50 MG 1 tablet as needed Orally three a day Active Blood Glucose Meter dispense glucometer 02/24/2024 Active Fiber 625 MG 2 tablets as needed Orally Three times a day Not-Taking traZODone HCl 50 MG 2 tablet at bedtime as needed Orally Once a day; Duration: 90 days Active Omeprazole 40 mg TAKE 1 CAPSULE BY MOUTH ONCE A DAY; Duration: 30 Active Immunizations Vaccine Route Administration Date Status Comme nts Tdap IM Intramuscular 01/17/2022 Administered Social History Tobacco Use: Social History Observation Description Date Details (start date - stop date) Never Smoker NA - NA Tobacco Use/Smoking Question Answer Notes Tobacco use: nonsmoker Problems Problem Type SNOMED Code ICD Code Onset Dates Problem Status W/U Status Risk Notes Problem 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, 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 Problem Primary insomnia (6732322) Primary insomnia (F51.01) Active confirmed Problem Autoimmune hepatitis (597453081) Autoimmune hepatitis (K75.4) Active confirmed Problem Liver disease (184302688) Liver disease, unspecified (K76.9) Active confirmed Problem Rheumatoid arthritis (84411564) Rheumatoid arthritis with rheumatoid factor, unspecified (M05.9) Active confirmed Problem Chronic gouty arthritis (37722039) Idiopathic chronic gout, multiple sites, 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) Active confirmed Problem Gout (00495065) Gout, unspecified (M10.9) Active confirmed Problem Primary generalised osteoarthritis (385137515) Primary generalized (osteo)arthritis (M15.0) Active confirmed Problem Osteoarthritis (037037788) Polyosteoarthrit is, unspecified (M15.9) Active confirmed Problem Pain in right foot (748298336623190) Pain in right foot (M79.671) Active confirmed Problem Aftercare for liver transplant done (23126430688518) Encounter for aftercare following liver transplant (Z48.23) Active confirmed Problem History of liver recipient (115851278) Liver transplant status (Z94.4) Active confirmed Problem Benign prostatic hypertrophy without outflow obstruction (315806972) Benign prostatic hyperplasia without lower urinary tract symptoms (N40.0) Active confirmed Problem Essential hypertension (40438081) Elevated blood pressure reading in office with diagnosis of hypertension (I10) Active confirmed Problem Age-related osteoporosis (958664961) Osteoporosis, unspecified osteoporosis type, unspecified pathological fracture presence (M81.0) Active confirmed Problem Rheumatoid arthritis (88775413) Rheumatoid arthritis with positive rheumatoid factor, involving unspecified site (M05.9) Active confirmed Problem History of liver recipient (702739915) Liver transplanted (Z94.4) Active confirmed Problem Liver disease (718867574) Liver disease (K76.9) Active confirmed Vital Signs Heart Rate 93 /min 10/01/2024 Temperature 96.6 degrees Fahrenheit 10/01/2024 Respiratory Rate 20 /min 10/01/2024 Blood pressure diastolic 76 mm Hg 10/01/2024 Oximetry 98 % 10/01/2024 Weight-kg 108.41 kg 10/01/2024 Height 70 in 10/01/2024 Blood pressure systolic 124 mm Hg 10/01/2024 Weight 239 lbs 10/01/2024 BMI 34.29 kg/m2 10/01/2024 Procedures Procedure Date Ordered Date Performed Result Body Sit e EAR IRRIGATION 10/01/2024 10/01/2024 N/A Encounters Encounter Location Date Provider Diagnosis [facility] [address] [place] [address] [id number] 01/06/2024 Syeda Clark Liver transplanted Z94.4 ; Primary insomnia F51.01 ; Benign prostatic hyperplasia without lower urinary tract symptoms N40.0 ; Rheumatoid arthritis with rheumatoid factor, unspecified M05.9 ; Pain in right foot M79.671 ; Osteoporosis, unspecified osteoporosis type, unspecified pathological fracture presence M81.0 ; Left wrist pain M25.532 and Diarrhea, unspecified R19.7 [facility] [address] [place] [id number] 02/24/2024 Syeda Clark Liver transplanted Z94.4 ; Primary insomnia F51.01 ; Benign prostatic hyperplasia without lower urinary tract symptoms N40.0 ; Rheumatoid arthritis with rheumatoid factor, unspecified M05.9 ; Pain in right foot M79.671 ; Osteoporosis, unspecified osteoporosis type, unspecified pathological fracture presence M81.0 ; Left wrist pain M25.532 ; Diarrhea, unspecified R19.7 ; Hot flashes R23.2 and Family history of malignant neoplasm of trachea, bronchus and lung Z80.1 [facility] [address] [place] [address] [id number] 04/06/2024 Syeda Clark Liver transplanted Z94.4 ; Primary insomnia F51.01 ; Benign prostatic hyperplasia without lower urinary tract symptoms N40.0 ; Rheumatoid arthritis with rheumatoid factor, unspecified M05.9 ; Pain in right foot M79.671 ; Osteoporosis, unspecified osteoporosis type, unspecified pathological fracture presence M81.0 ; Left wrist pain M25.532 ; Diarrhea, unspecified R19.7 and Family history of malignant neoplasm of trachea, bronchus and lung Z80.1 [facility] [address] [place] [address] [id number] 08/04/2024 Syeda Clark Body aches R52 ; Viral infection, unspecified B34.9 ; Liver transplanted Z94.4 and Rheumatoid arthritis with rheumatoid factor, unspecified M05.9 [facility] [address] [place] [address] [id number] 08/25/2024 Syeda Clark Liver disease, unspecified K76.9 ; Encounter for aftercare following liver transplant Z48.23 ; Liver transplant status Z94.4 and Disorder of phosphorus metabolism, unspecified E83.30 [facility] [address] [place] [address] [id number] 10/01/2024 Syeda Clark Shortness of breath R06.02 ; Dizziness R42 and Impacted cerumen of right ear H61.21 [facility] [address] [place] [address] [id number] 10/13/2024 Syeda Clark Encounter for aftercare following liver transplant Z48.23 ; Disorder of phosphorus metabolism, unspecified E83.30 and Dysuria R30.0 [facility] [address] [place] [address] [id number] 10/29/2024 Syeda Clark Encounter for aftercare following liver transplant Z48.23 [facility] [address] [place] [address] [id number] 11/06/2024 Rosenda Ames Rheumatoid arthritis with rheumatoid factor, unspecified M05.9 ; Idiopathic chronic gout, multiple sites, without tophus (tophi) M1A.09X0 ; Autoimmune hepatitis K75.4 ; Primary generalized (osteo)arthritis M15.0 and Encounter for therapeutic drug level monitoring Z51.81 [facility] [address] [facility] [address] [place], [place] [id number] 01/07/2024 Syeda Clark [facility] [address] [facility] [address] [place], [place] [id number] 02/25/2024 Syeda Clark [facility] [address] [address] [place], [place] [id number] 03/23/2024 Syeda Clark Family history of malignant neoplasm of trachea, bronchus and lung Z80.1 Assessments Encounter Date Diagnosis (ICD Code) Assessment Notes Treatment Notes Treatment Clinical Notes Section Notes 01/06/2024 Primary insomnia (ICD-10 - F51.01) Continue Trazodone as needed. 01/06/2024 Liver transplanted (ICD-10 - Z94.4) Patient with hx of liver transplant from living donor. Sees [place] [facility] Gets routine labs every 3 months. Had labs on 12/19/23. Continue Prednisone. Ursodiol, Mycophenolate and Tacrolimus. 02/24/2024 Primary insomnia (ICD-10 - F51.01) Continue Trazodone as needed. 02/24/2024 Liver transplanted (ICD-10 - Z94.4) Patient with hx of liver transplant from living donor. Sees [facility]. Gets routine labs every 3 months. Continue Prednisone. Ursodiol, Mycophenolate and Tacrolimus. 03/23/2024 Family history of malignant neoplasm of trachea, bronchus and lung (ICD-10 - Z80.1) 04/06/2024 Liver transplanted (ICD-10 - Z94.4) Patient with hx of liver transplant from living donor. Sees [facility]. Gets routine labs every 3 months. Continue Prednisone. Ursodiol, Mycophenolate and Tacrolimus. 08/04/2024 Viral infection, unspecified (ICD-10 - B34.9) Flu testing today negative. Patient could have COVID, but declines testing today. Patient cannot take Paxlovid due to liver transplant. Patient is also immunocompromised due to liver transplant and RA. Will give patient prescription for Cefdinir to take if symptoms worsen, starts having fever or does not improve in 2-3 days. Symptoms likely due to viral URI. Continue supportive care. OTC Tylenol or Ibuprofen as needed for fever. OTC cough medications or honey as needed for cough. Increase PO fluid intake. Monitor for worsening of symptoms. RTC if symptoms worsen or do not improve in 2-3 days. 08/04/2024 Body aches (ICD-10 - R52) 08/25/2024 Liver disease, unspecified (ICD-10 - K76.9) 10/01/2024 Shortness of breath (ICD-10 - R06.02) Patient having shortness of breath on exertion. EKG in office today without ST elevation or depression. Will get labs today. Refer to cardiology for evaluation. Go to ER for any worsening chest pain or shortness of breath. 10/01/2024 Dizziness (ICD-10 - R42) Refer to cardiology. Labs today. 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 08/25/2024 Encounter for aftercare following liver transplant (ICD-10 - Z48.23) 08/04/2024 Liver transplanted (ICD-10 - Z94.4) Patient with hx of liver transplant from living donor. Sees [facility]. Gets routine labs every 3 months. Continue Prednisone. Ursodiol, Mycophenolate and Tacrolimus. 04/06/2024 Primary insomnia (ICD-10 - F51.01) Has had trouble sleeping. Can try taking 2 tablets of Trazodone. If higher dose is helping, will send new prescription to pharmacy. Consider changing medications if not improving. 01/06/2024 Benign prostatic hyperplasia without lower urinary tract symptoms (ICD-10 - N40.0) Continue current medciation. 02/24/2024 Benign prostatic hyperplasia without lower urinary tract symptoms (ICD-10 - N40.0) Continue current medciation. 02/24/2024 Rheumatoid arthritis with rheumatoid factor, unspecified (ICD-10 - M05.9) Continue to follow with [facility]. Taking Tramadol as needed for pain. 01/06/2024 Rheumatoid arthritis with rheumatoid factor, unspecified (ICD-10 - M05.9) Continue to follow with [facility]. Taking Tramadol as needed for pain. 08/04/2024 Rheumatoid arthritis with rheumatoid factor, unspecified (ICD-10 - M05.9) Continue to follow with [facility]. Taking Tramadol as needed for pain. [facility] usually manages Tram[facility]ol, but is not able to get in with them at this time. Will refill Tramadol today until he can be seen in their office. 04/06/2024 Benign prostatic hyperplasia without lower urinary tract symptoms (ICD-10 - N40.0) Continue current medciation. 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 Taking Tramadol as needed for pain. 01/06/2024 Pain in right foot (ICD-10 - M79.671) Patient seeing ortho, has bilateral fractures. Continue Alendronate for osteoporosis. Continue to follow with ortho for management. 02/24/2024 Pain in right foot (ICD-10 - M79.671) Continue Alendronate for osteoporosis. Continue to follow with ortho for management. 01/06/2024 Osteoporosis, unspecified osteoporosis type, unspecified pathological fracture presence (ICD-10 - M81.0) Patient has hx of liver transplant. DEXA showed osteoporosis. Continue Alendronate. 02/24/2024 Osteoporosis, unspecified osteoporosis type, unspecified pathological fracture presence (ICD-10 - M81.0) Patient has hx of liver transplant. DEXA showed osteoporosis. Continue Alendronate. 04/06/2024 Pain in right foot (ICD-10 - M79.671) Continue Alendronate for osteoporosis. Continue to follow with ortho for management. Patient to call ortho for follow up appointment if pain is not improving. 04/06/2024 Osteoporosis, unspecified osteoporosis type, unspecified pathological fracture presence (ICD-10 - M81.0) Patient has hx of liver transplant. DEXA showed osteoporosis. Continue Alendronate. 02/24/2024 Left wrist pain (ICD-10 - M25.532) Patient having left wrist pain. X-ray did not show fracture. Refer to PT. 01/06/2024 Left wrist pain (ICD-10 - M25.532) Patient having left wrist pain after bending wrist around 3-4 weeks ago. No point tenderness. Will get x-ray due to osteoporosis. However, suspect tendinitis. If x-ray is negative consider increasing dose of prednisone for a short period as patient cannot take NSAIDs. 02/24/2024 Diarrhea, unspecified (ICD-10 - R19.7) GI physician, Dr. Tello, is retiring. Will take over prescribing Cholestipol for patient. 01/06/2024 Diarrhea, unspecified (ICD-10 - R19.7) GI physician, Dr. Tello, is retiring. Will take over prescribing Cholestipol for patient. 04/06/2024 Left wrist pain (ICD-10 - M25.532) Patient having left wrist pain. X-ray did not show fracture. Still having intermittent pain. Patient will discuss with [facility] at next appointment. 04/06/2024 Diarrhea, unspecified (ICD-10 - R19.7) Controlled. Continue Cholestipol. 02/24/2024 Hot flashes (ICD-10 - R23.2) Patient having hot flashes intermittently. Will get labs today. 02/24/2024 Family history of malignant neoplasm of trachea, bronchus and lung (ICD-10 - Z80.1) Father, brother and sister had lung cancer. Concern for familial cancer. Will order screening LDCT. 04/06/2024 Family history of malignant neoplasm of trachea, bronchus and lung (ICD-10 - Z80.1) Father, brother and sister had lung cancer. Concern for familial cancer. Patient has CT chest scheduled. 08/04/2024 Other Plan Of Treatment Pending Test Test Name Order Date CT Scan : Head, without contrast 023 X ray : Foot, right 01/24/2023 Phosphorus, Serum 04/08/2023 Phosphorus, Serum 01/08/2023 GGT 01/08/2023 GGT 04/08/2023 CBC With Differential/Platelet 3 Ammonia, Plasma 10/13/2024 Tacrolimus (FK506), Blood 02/24/2024 Tacrolimus (FK506), Blood 10/01/2023 Tacrolimus (FK506), Blood 10/13/2024 Tacrolimus (FK506), Blood 01/08/2023 Tacrolimus (FK506), Blood 05/08/2022 Tacrolimus (FK506), Blood 04/08/2023 Tacrolimus (FK506), Blood 07/02/2023 Urine toxicology 11/06/2024 COMPREHENSIVE METABOLIC PANEL (94267) COMPREHENSIVE METABOLIC PANEL (71688) MAGNESIUM (622) 07/02/2023 MAGNESIUM (622) 10/01/2023 PHOSPHATE ( PHOSPHORUS) (718) 10/01/19 24 PHOSPHATE ( PHOSPHORUS) (718) 07/02/19 24 GGT (482) 07/02/2023 GGT (482) 10/01/2023 CBC (INCLUDES DIFF/PLT) (6399) 4 C-REACTIVE PROTEIN (4420) 10/01/2023 C-REACTIVE PROTEIN (4420) 07/02/2023 PSA, TOTAL (5363) 07/02/2023 Insurance Providers Payer Name Payer Address Payer Phone Subscriber Number Group Number Insured Name Patient Relationship to Insured Coverage Start Date Coverage End Date [facility] [address] [place], [place] [id number] SILVIA CARRILLO Self - patient is the insured Medical (General) History Surgical History Surgery Date(Month/Year) Liver transplant Gallbladder Spleenectomy Hospitalization History Reason Date(Month/Year) Liver transplant Surgeries
--- OUTSIDE RECORDS SUMMARY | 2025-01-05 12:53 | XMS_ITS | Encounter Summary ---
Author Organization [facility] Address [address] [place] [address] Care Team Providers Care Music Journalist Name Role Phone Syeda Clark MD Primary Care Provider [phone] Encounter Details Date Type Department Care Team (Late st Contact Info) Description 11/10/2024 Results Follow-Up [facility] [address] [place] [phone] Michi Torres DO [address] [place] [address] Social History Tobacco Use Types Packs/Day Years [...] on file documented as of this encounter Miscellaneous Notes * Telephone Encounter - Nelli Cheek MA - 11/10/2024 1:53 PM EDT Sent results via [employer] documented in this encounter Plan of Treatment Upcoming Encounters Date Type Department Care Team (Late st Contact Info) Description 04/05/2025 8:30 AM EST Office Visit [facility] [address] [phone] Mariaelena Coyle APRN [address] [facility] [address] [place] [address] documented as of this encounter Visit Diagnoses Not on filedocumented in this encounter Care Teams Music Journalist Relationship Specialty Start Date End Date Syeda Clark MD [address] [place] [address] PCP - General Family Medicine 08/21/23 documented as of this encounter
--- OUTSIDE RECORDS SUMMARY | 2025-01-05 12:53 | XMS_ITS | Encounter Summary ---
Author Organization [facility] Address [address] [place] [address] Care Team Providers Care Radio Communications Mechanician Name Role Phone Arpit Ramirez MD Primary Care Provider [phone] Joao Tello MD Unavailable [phone] Encounter Details Date Type Department Care Team (Late st Contact Info) Description 04/09/2016 [facility] [address] [place] [phone] Fede Cheatham, RN [facility] Social History Tobacco Use Types Packs/Day Years Used Date Smoking Tobacco: Never Assessed Sex and Gender Information Value Date Recorded Sex Assigned at Not on file Legal Sex Male 7:33 PM EDT Gender Identity Not on file Sexual Orientation Not on file documented as of this encounter Miscellaneous Notes * Progress Notes - Fede Cheatham - 04/09/2016 1:47 PM EST rtc 6 months. * Progress Notes - ProviderRickey MD - 04/04/2016 12:02 PM EDT 55 yo with AIH/PSC came in for the follow up. He was last seen in February 2016. Not undergoing liver transplant evaluation given low MELD. MELD 10 No decompensation with ascites, GI bleed or hepatic encephalopathy. Plan: Never had EGD, will schedule for EGD before next visit for EV screening. Last MRI liver on 02/06/15 - intraductal irregularity with evidence of strictures s/p balloon dilation of common hepatic duct stricture. Biliary brushings showed no evidence of malignancy. Will follow up MRI abdomen results from today.Ca 19-9 was 47 in 2014, repeat pending today. Continue Imuran 100 mg and prednisone 10 mg- total bilirubin stable to 1.9, ALP 443-->359.c/w ursodiol 600 mg BID Pt advised to stop rifampin, will prescribe hydroxyzine prn for pruritis. He has been following with [facility] for renal cyst- has been stable for 3 years as per him. Schedule for US renal today. BMD results pending from today. c/w vitamin D and calcium. Return in 2 months. 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 Intraductal irregularity with evidence of strictures and dilatations consistent with history of primary sclerosing cholangitis. No suspicious liver lesions. Atrophic left kidney with multiple cyst. Patient had the ERCP in April 2015: multifocal extra/ intrahepatic cholangiopathy was seen, balloon dilation of common hepatic duct stricture was performed, biliary cytology and periampullary biopsies were obtained and specimen was sent for IgG4. Biliary brushings showed no evidence of malignancy. Duodenum, ampulla biopsies showed fragments of benign duodenal mucosa without abnormality. No increase in plasma cells was seen in the duodenal mucosa, therefore no IgG4 staining was performed. IgG4 testing in bile was not possible due to the viscosity of the bile . Patient continues taking Imuran 100 mg and prednisone 10 mg as before. He was seen back this summer due to worsening kidney function with creatinine 2.5, which improved to normal level on subsequent testing Plan: Repeat MRI abdomen with contrast/MRCP Ultrasound kidneys bilateral DEXA scan Patient is advised to take vitamin D and calcium Return in 4???6 weeks for discussion of results * Progress Notes - Rm West - 01/02/2016 11:31 AM EDT 27 December 2015: Here for urgent evaluation at request of Dr Tello. He has been following patient exclusively over past year for AIH/PSC, and associated bile duct surveillance. Transplant Team determined well compensated and too early for Transplant last year. A few weeks ago during routine labs, Promise noted creatinine up to 2.57 and became concerned patient was decompensating. He asked that patient be seen by us. Today, patient looks great. 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 This summer he has been working very hard, mostly outside in the heat. He's been feeling well. No ascites, no confusion or mental status changes. Does not uses diuretics or lactulose/Xifaxan.No history of ascites or varies. Pt says he did have some back stiffness from his work and took up to 800mg a day of Ibuprofen for a couple of days. I reviewed his labs from Dr Tello and from today. His creat in normal today and his liver function appear unchanged. He has no clinical findings of decompensation. I believe the combination of dehydration and ibuprofen resulted in DEIRDRE, now resolvedthereby briefly driving up his MELD. There is no evidence of liver decompensation. Dr Felix will see his today for a surgical opinion as well. Just to be complete, I will have him get labs every 2 weeks and I will see him back in 6 weeks. Most likely, we will not need to evaluate for transplant atthis time and I hope to be able to simply clear him back to Dr Tello at that time. He will of course need continued surveillance for bile duct obstruction and screening for cholangiocarcinoma with repeat imaging and CA 19-[address] Tello discretion. RTC about 6 weeks. * Progress Notes - Provider, MD Rickey - 12/27/2015 11:21 AM EDT 55 M PSC/autoimmune. Seen 1 year ago without symptoms. MELD went to 17 a few weeks ago, all creatinine (2.6). Today, labs have normalized (Cr 0.8, MELD 9, baseline). Reccomend: serial labs per Andrew West. No need to eval at this time. documented in this encounter Plan of Treatment Not on file documented as of this encounter Visit Diagnoses Not on filedocumented in this encounter Care Teams Radio Communications Mechanician Relationship Specialty Start Date End Date Arpit Ramirez MD [address] [place] [address] PCP - General 10/14/20 Joao Tello MD [address] [facility] [address] [place] [address] Referring Physician Gastroenterology 01/01/25 documented as of this encounter
--- OUTSIDE RECORDS SUMMARY | 2025-01-05 12:54 | XMS_ITS | Encounter Summary ---
Author Organization Healthcare Address [address] [place] [address] Care Team Providers Care Precision Dancer Name Role Phone Arpit Ramirez MD Primary Care Provider [phone] Joao Tello MD Unavailable Encounter Details Date Type Department Care Team (Late st Contact Info) Description 03/28/2018 [facility] [address] [place] [address] Darling Mcfarlane PA [address] [place] [id number] Social History Tobacco Use Types Packs/Day Years Used Date Smoking Tobacco: Never Assessed Sex and Gender Information Value Date Recorded Sex Assigned at Not on file Legal Sex Male 7:33 PM EDT Gender Identity Not on file Sexual Orientation Not on file documented as of this encounter Miscellaneous Notes * Progress Notes - Darling Mcfarlane - 03/28/2018 3:54 PM EDT 57 year old male with biopsy demonstrated 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 Listed for liver transplant. MELD 13 (INR 1.2, Cr 0.8, Na 137, Bili 3.1) 1. Autoimmune Hepatitis -on imuran 150 mg daily and prednisone 7.5 mg daily; -Per record review, his last biopsy was in 2011. 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 Occasional plasma cells, prominent interface changes. Bile duct degeneration or loss. No evidence of periductal fibrosis -VAUGHN, AMA, LKM, SLA and Ig Profile are all normal August 2017 -repeat liver biopsy here 09/27/15 - marked interface changes and prominent ductular reaction Plan --decrease prednisone today given osteoporosis, recent fractures --recent spike in liver enzymes and bili, but this likley more due to PSC (see below) --check CMP --continue to follow with dermatology given half-way imuran therapy 2. Primary Sclerosing Cholangitis -has had stenting/dilation per referring provider, last had ERC in Apr 2015 with balloon dilation of stricture -MRI/MRCP - 09/06/17 - Cirrhosis with heterogenous regions of hyperenhancement within the hypertrophied caudate lobe. No suspicious hepatic lesions. Redemonstration of intraductal irregularity with stable areas of stricture and dilatation consistent with history of primary sclerosing cholangitis, CA 19.9 -seen last Saturday [place] [facility] [place] when he had RUQ pain, fever with rigors and chills. He was started on a 10 day course for possible cholangitis, although he did not have imaging or ERCP. When he was seen on 01/24, his liver enzymes had trending up to 108/111/475/9.7. His bili was 3.0 on 01/01. Today his enzymes are 71/71/388/3.1. -MRCP on 02/24/18 - Redemonstration of multifocal intrahepatic biliary ductal dilatation, slightly increased in the caudate lobe. No choledocholithiasis, epithelial thickening orabnormal enhancement. -no evidence of IBD on recent colonoscopy October 2017 -CA 19.9 - 22.8 Plan --educated patient on s/s of cholangitis and advised to report to ER should they occur --check CMP in 1 week --continue q6 monthly MRCP with CA 19.9 --will consider discontinuing ursodiol, as it is not indicated in PSC but for now given recent spike in liver enzymes will leave on ursodiol 1200 mg/daily,, which is appropriate for weight 3. Cirrhosis --MELD labs today --listed for liver transplant # Ascites - last LVP in mid january with 1 liter removed; Seems to be reaccumulating; Has gained 9 pounds in the past 2 months; on furosemide 20 mg and spironolactone 50 mg daily. No hx of SBP. now compliant with 2gNa diet restriction --increase furosemide to 40 mg daily --increase spironolactone to 100 mg daily --check CMP in 1 week --discussed importance of 2gNa diet restriction #Variceal surveillance - most recent EGD 10/07/17 - grade 2 EV with no s/s of bleeding, PHG; patientsHR usually runs 50-60 bpm so likely not a candidate for NSBB therapy --advised patient to report to ER should they develop hematemesis, coffee ground emesis, melena --will repeat EGD in 1 year #HCC/CCA Surveillance - MRI/MRCP - 02/24/18 - LIRADS negative;. No suspicious hepatic lesions. Redemonstration of intraductal irregularity with stable areas of stricture and dilatation consistent withhistory of primary sclerosing cholangitis, CA 19.9 and AFP normal --plan for MRCP, check AFP and CA 19.9 q6 months 4. Pruritus - --continue cholestyramine 4 g up to 4 times daily as needed for itching, educated on side effects. --start hydroxyzine 25 mg QID 5. Cystic Kidney - has been following with traffic monitor specialist for renal cyst- has been stable for 3 yearsas per him. Schedule for US renal Apr 04, 2016 - Small atrophic left kidney. Normal right kidney with no suspicious masses or sonographically detectable calculi. No hydronephrosis.MRI 09/06 - Unchanged atrophic left kidney with multiple cyst with varying signal intensities. Differential considerations include multicystic dysplastic kidney or sequela from prior infection or vascular injury. --Will continue to monitor on routine imaging 6. Osteoporosis - BMD was low bone mass/osteopenia from Apr 04, 2016. On calcium 600 mg dialy +600 IUs vit d. He is on long-term steroids; Vitamin D level is 46. 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 Insomnia --hydroxyzine as above; did not like trazodone due to drowsiness #Health Maintenance: --immune to HAV/HBV --colonoscopy completed 10/07/17 with tubular adenoma Transplant Status: listed for liver transplant. Labs in 1 weeks RTC in 8 weeks. 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 MELD 16 (INR 1.3, Cr 0.82, Na 137, Bili 6.2) Listing for liver transplant is pending insurance approval. 1. Autoimmune Hepatitis -on imuran 150 mg daily and prednisone 7.5 mg daily; -Per record review, his last biopsy was in 2011. 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 Occasional plasma cells, prominent interface changes. Bile duct degeneration or loss. No evidence of periductal fibrosis -VAUGHN, AMA, LKM, SLA and Ig Profile are all normal August 2017 -repeat liver biopsy here 09/27/15 - marked interface changes and prominent ductular reaction 2. Primary Sclerosing Cholangitis -has had stenting/dilation per referring provider, last had ERC in Apr 2015 with balloon dilation of stricture -MRI/MRCP - 09/06/17 - Cirrhosis with heterogenous regions of hyperenhancement within the hypertrophied caudate lobe. No suspicious hepatic lesions. Redemonstration of intraductal irregularity with stable areas of stricture and dilatation consistent with history of primary sclerosing cholangitis, CA 19.9 -seen last Saturday after a [place] [facility] [place] when he had RUQ pain, fever with rigors and chills. He was started on a 10 day course for possible cholangitis, although he did not have imaging or ERCP. When he was seen on 01/24, his liver enzymes had trending up to 108/111/475/9.7. His bili was 3.0 on 01/01. Today his enzymes are 92/87/445/6.2. Dr. Carrerarequested MRCP last visit, which isn't scheduled until 03/28. -no evidence of IBD on recent colonoscopy October 2017 Plan 3. Cirrhosis # Ascites - now well controlled on lasix 20 mg and spironolactone 50 mg daily, LVP in mid january with 1 liter removed, euvolemic today no hx of SBP. now compliant with 2gNa diet restriction #Variceal surveillance - most recent EGD 10/07/17 - grade 2 EV with no s/s of bleeding, PHG unclear when last EGD was, patient thought it may have been about 1-2 years ago, but he may have this confused with ERCP, scheduled for EGD on 10/11, patients HR usually runs 50-60 bpm so likely not a candidatefor NSBB therapy #HCC/CCA Surveillance - MRI/MRCP - 09/06/17 - Cirrhosis with heterogenous regions of hyperenhancementwithin the hypertrophied caudate lobe. No suspicious hepatic lesions. Redemonstration of intraductal irregularity with stable areas of stricture and dilatation consistent with history of primary sclerosing cholangitis, CA 19.9 (48) and AFP normal 4. Pruritus - 5. Cystic Kidney - has been following with traffic monitor specialist for renal cyst- has been stable for 3 yearsas per him. Schedule for US renal Apr 04, 2016 - Small atrophic left kidney. Normal right kidney with no suspicious masses or sonographically detectable calculi. No hydronephrosis.MRI 09/06 - Unchanged atrophic left kidney with multiple cyst with varying signal intensities. Differential considerations include multicystic dysplastic kidney or sequela from prior infection or vascular injury. 6. Osteoporosis - BMD was low bone mass/osteopenia from Apr 04, 2016. On calcium 600 mg dialy +600 IUs vit d. He is on long-term steroids; Vitamin D level is 46. he had osteoporosis on recent BMD 7. Insomnia #Health Maintenance: --immune to HAV/HBV --colonoscopy completed 10/07/17 with tubular adenoma Plan --seems to be improving on 10 day course of ciprofloxacin --will follow MRCP results and request this image be scheduled sooner than 03/28 --educated patient on s/s of cholangitis and advised to report to ER should they occur --check CMP in 2 weeks --continue therapy at current dose, although we are hoping to taper off of prednisone completely after MRCP --continue to follow with dermatology given half-way imuran therapy --start trazodone 50 mg nightly --continue to trend AFP and CA 19.9 Transplant Status: listing for OLT pending insurance approval Labs in 2 weeks RTC in 8 weeks. * Progress Notes - Celsa Carrera - 01/28/2018 5:03 PM EDT Admitted last week with RUQ pain and chills. Positive for UTI Bilirubin increased, ? cholangitis vs in the setting of UTI Schedule MRI/MRCP Discuss listing * Progress Notes - ProviderRickey MD - 01/27/2018 2:06 PM EDT List pending financial. * Progress Notes - Darling Mcfarlane - 09/17/2017 1:14 PM EDT This is a 57 yo WM with PSC/AIH Cirrhosis who is seen in follow-up. He has been evaluated for transplant, listing pending stopping smokeless tobacco. MELD 13 (INR 1.2, Cr 0.69, Na 137, Bili 3.1) 1. AIH - on imuran 100 mg daily and prednisone 15 mg daily per outside provider; Per record review,his last biopsy was in 2011. 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 Occasional plasma cells, prominent interface changes. Bile duct degeneration or loss. No evidence of periductal fibrosis. He had very mildly elevated VAUGHN. His AST is 55, ALT 68, ALP 335, with bili 3.1, VAUGHN, AMA, LKM, SLA and Ig Profile are all normal August 2017 2. PSC - has had stenting/dilation per referring provider, last had ERC in Apr 2015 with balloon dilation of stricture, MRI/MRCP - 09/06/17 - Cirrhosis with heterogenous regions of hyperenhancement within the hypertrophied caudate lobe. No suspicious hepatic lesions. Redemonstration of intraductal irregularity with stable areas of stricture and dilatation consistent with history of primary sclerosing cholangitis, CA 19.9 3. Cirrhosis # Ascites - now well controlled on lasix 20 mg and spironolactone 50 mg daily, He has not had an LVP, no hx of SBP. now compliant with 2gNa diet restriction #Variceal surveillance - unclear when last EGD was, patient thought it may have been about 1-2 years ago, but he may have this confused with ERCP, scheduled for EGD on 10/11, patients HR usually runs 50-60 bpm so likely not a candidate for NSBB therapy #HCC/CCA Surveillance - MRI/MRCP - 09/06/17 - Cirrhosis with heterogenous regions of hyperenhancementwithin the hypertrophied caudate lobe. No suspicious hepatic lesions. Redemonstration of intraductal irregularity with stable areas of stricture and dilatation consistent with history of primary sclerosing cholangitis, CA 19.9 and AFP normal 4. Pruritus - 5. Cystic Kidney - has been following with traffic monitor specialist for renal cyst- has been stable for 3 yearsas per him. Schedule for US renal Apr 04, 2016 - Small atrophic left kidney. Normal right kidney with no suspicious masses or sonographically detectable calculi. No hydronephrosis.MRI 09/06 - Unchanged atrophic left kidney with multiple cyst with varying signal intensities. Differential considerations include multicystic dysplastic kidney or sequela from prior infection or vascular injury. 6. Osteoporosis - BMD was low bone mass/osteopenia from Apr 04, 2016. On calcium 600 mg dialy +600 IUs vit d. He is on long-term steroids; Vitamin D level is 46. 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 * Progress Notes - Darling Mcfarlane - 07/27/2017 3:44 PM EST This is a 57 yo WM with PSC/AIH Cirrhosis who is seen in follow-up. He has not been evaluated for transplant due to low MELD MELD 13 (INR 1.2, Cr 0.85, Na 138, Bili 3.6) 1. AIH - on imuran 100 mg daily and prednisone 15 mg daily per outside provider; Per record review,his last biopsy was in 2011. The pathology report is not available, but per outside provider notes it was consistent with AIH, and he had very mildly elevated VAUGHN. His AST is 83, ALT 97, ALP 429, with bili 3.6. 2. PSC - has had stenting/dilation per referring provider, last had ERC in Apr 2015 with balloon dilation of stricture, ALP 429, bili 3.6 3. Cirrhosis # Ascites - recently developed, never had LVP or SBP, on lasix 40 mg daily and spironolactone 100 mg, not following a 2gNa diet restriction #Variceal surveillance - unclear when last EGD was, patient thought it may have been about 1-2 years ago, but he may have this confused with ERCP #HCC/CCA Surveillance - MRI on Apr 04, 2016 - Morphologic changes of cirrhosis without portal hypertension. No suspicious liver lesions.Intraductal irregularity with areas of stricture and dilatation,consistent with history of primary sclerosing cholangitis AFP was 3.3 in December 2015. CA 19.9 - 26.2,states he had US locally last month 4. Pruritus - 5. Cystic Kidney - has been following with traffic monitor specialist for renal cyst- has been stable for 3 yearsas per him. Schedule for US renal Apr 04, 2016 - Small atrophic left kidney. Normal right kidney with no suspicious masses or sonographically detectable calculi. No hydronephrosis. 6. Osteopenia - BMD was low bone mass/osteopenia from Apr 04, 2016. On calcium 600 mg dialy +600 IUsvit d. He is on long-term steroids #Health Maintenance: Plan --obtain outside pathology report, and have liver biopsy sent here for pathology review --check AMA, VAUGHN, ASMA, SLA, LKM, Ig Profile --discussed importance of dermatology follow-up due to imuran therapy --discussed importance of vitamin d/calcium replacement given supervisor intermediates prednisone therapy --schedule EGDand colonoscopy --schedule MRI/MRCP --check AFP and CA 19.9 --start cholestyramine 4 g up to 4 times daily as needed for itching, educated on side effects. --needs to be evaluated for HAV/HBV immunity Transplant Status: discussed evaluation in txp committee. RTC in 1 month documented in this encounter Plan of Treatment Not on file documented as of this encounter Visit Diagnoses Not on filedocumented in this encounter Care Teams Precision Dancer Relationship Specialty Start Date End Date Arpit Ramirez MD [address] [facility] [place] [address] PCP - General 10/14/20 Joao Tello MD [facility] [address] [place] [id number] Referring Physician Gastroenterology 01/01/25 documented as of this encounter
--- OUTSIDE RECORDS SUMMARY | 2025-01-05 12:54 | XMS_ITS | Encounter Summary ---
Author Organization [facility] Address [address] [place] [address] Care Team Providers Care Wardrobe Specialist Name Role Phone Arpit Ramirez MD Primary Care Provider [phone] Joao Tello MD Unavailable [phone] Encounter Details Date Type Department Care Team (Late st Contact Info) Description 04/19/2016 [facility] Encounter Historical OTTR [address] [place] [address] [facility] [address] [place] [address] Social History Tobacco Use Types Packs/Day Years Used Date Smoking Tobacco: Never Assessed Sex and Gender Information Value Date Recorded Sex Assigned at Not on file Legal Sex Male 7:33 PM EDT Gender Identity Not on file Sexual Orientation Not on file documented as of this encounter Miscellaneous Notes * Progress Notes - Darling Mcfarlane - 10/15/2016 3:01 PM EDT Spoke with Virginie at Dr. Rosado's office - disccused with her that we would like to refer him back given low, stable MELD. She is in agreement. Patient needs EGD - this can be done with Dr. Tello. Thanks! * Progress Notes - Darling Mcfarlane - 10/10/2016 12:21 PM EDT This is a 56 yo WM with PSC/AIH Cirrhosis who is seen in follow-up. He has not been evaluated for transplant due to low MELD MELD 9 (INR 1.1, Cr 0.88, Na 139, Bili 1.5) Compensated 1. AIH/PSC with Compensated cirrhosis--on imuran 100 mg daily and prednisone 10 mg daily--on ursodiol 1200 mg/daily for PSC, which is appropriate for weight--last had ERC in Apr 2015 with balloon dilation of stricture #Variceal surveillance - unclear when last EGD [...] 3.3 in December 2015. CA 19.9 - 26.2 2. Pruritus - well controlled on hydroxyzine 3. Cystic Kidney - has been following with handbag stitcher for renal cyst- has been stable for 3 yearsas per him. Schedule for US renal Apr 04, 2016 - Small atrophic left kidney. Normal right kidney with no suspicious masses or sonographically detectable calculi. No hydronephrosis. 4. Headache - he describes them as sinus headaches. He has had about 3 in the past month. Last night he took ibuprofen and it resolved the headache. Has never taken tylenol for it 5. Osteopenia - BMD was low bone mass/osteopenia from Apr 04, 2016. On calcium 600 mg dialy +600 IUsvit d. He is on long-term steroids #Health Maintenance:--needs to be evaluated for HAV/HBV immunity Plan --plan to schedule EGD --advised patient to report to ER should they develop hematemsis, coffee ground emesis, melena --plan for US of abdomen, needs updated AFP and CA 19.9 --instructed to take tylenol and avoid NSAIDs; advised to stay under 2000 mg of tylenol --increase calcium/vit D to BID --plan for next BMD in 2-3 years Transplant Status: Low, stable MELD - can refer back to Dr. Tello or [facility] * Progress Notes - Elva Talley - 04/19/2016 3:06 PM EST R/s pt's Labs/Hep per [facility] from 05/23 to 10/10 at 7:00am. Left a vm for the pt letting him know the new date and time. Mailing reminder for pt's review. * Progress Notes - Doretha Bryant - 04/18/2016 10:11 AM EST Will ask BB to r/s hep and labs for 6months and update pt with new date and time. * Progress Notes - Elva Talley - 02/24/2016 10:38 AM EDT Pt was scheduled on 03/20 for Labs/Hep. Moved appts to 04/04 to coordinate with BMD/MRI Abd/Renal US. Pt will arrive at 9:00am for labs and to register. Tried to reach the pt, but had to leave a detailed vm. Mailing schedule for pt's review. Requested call back to confirm. Update: Pt called back and confirmed appt. * Progress Notes - Doretha Bryant - 02/23/2016 11:41 AM EDT Orders in [facility] for MRI/MRCP, US renal, and dexa scan. Will update BB to schedule and contact pt withdates and times. Pt has hep appt on 03/20. * Progress Notes - Rickey Mejia MD - 02/10/2016 9:[address] Carrera please make sure pt has CA 19-9 at next visit. Pt had left before we were able to collect it today. * Progress Notes - Elva Talley - 01/05/2016 2:41 PM EDT Scheduled pt for Labs/Hep 02/09 at 7:40am. Spoke to the pt and confirmed this date and time with him.He verbalized understanding. * Progress Notes - Rosa Flaherty Oscar - 12/23/2015 9:15 AM EDT Spoke to Nazia at Dr Tello office - scheduled Mr Chavez for Tuesday 12/26 at 8:20am. She will notify patient and fax labs/clinic note. Sent reminder and map to Mr Chavez's email. * Progress Notes - Jaun Brown - 12/22/2015 4:33 PM EDT Received call from Dr. Tello that the patient is now decompensating significantly, despite maximal therapy. We initially did not pursue evaluation due to low MELD and no decompensation, but it sounds like the patient will need evaluation for liver transplant. Please schedule patient for liver ICEASAP next week (okay to overbook if necessary). documented in this encounter Plan of Treatment Not on file documented as of this encounter Procedures Procedure Name Priority Date/Time Associated Diagnosis Comments OTTR LAB RESULTS (MANUAL) Routine 10/10/2016 6:54 AM EDT OTTR LAB RESULTS (MANUAL) Routine 04/04/2016 8:53 AM EDT OTTR LAB RESULTS (MANUAL) Routine 02/10/2016 7:24 AM EDT OTTR LAB RESULTS (MANUAL) Routine 01/25/2016 4:15 PM EDT OTTR LAB RESULTS (MANUAL) Routine 12/27/2015 8:18 AM EDT OTTR LAB RESULTS (MANUAL) Routine 11/28/2015 1:49 PM EDT OTTR LAB RESULTS (MANUAL) Routine 08/10/2015 1:51 PM EST documented in this encounter Results * OTTR LAB RESULTS (MANUAL) (10/10/2016 6:54 AM EDT) Pathologist [facility] External Estimated GFR 95.56 EXTERNAL LAB 10/10/2016 6:54 AM EDT Narrative EXTERNAL LAB - 10/10/2016 8:18 AM EDT Automated LAB Interface Historical Provider MD LAB BLOOD ORDERABLES Ania l Result Performing Organization Address [facility] Co de Phone Number EXTERNAL LAB * OTTR LAB RESULTS (MANUAL) (04/04/2016 8:53 AM EDT) [facility] External Estimated GFR 109.84 EXTERNAL LAB 04/04/2016 8:53 AM EDT Narrative EXTERNAL LAB - 04/04/2016 10:29 AM EDT Automated LAB Interface Historical Provider MD LAB BLOOD ORDERABLES Ania l Result Performing Organization Address [facility] Co de Phone Number EXTERNAL LAB * OTTR LAB RESULTS (MANUAL) (02/10/2016 7:24 AM EDT) [facility] External Estimated GFR 96.83 EXTERNAL LAB 02/10/2016 7:24 AM EDT Narrative EXTERNAL LAB - 02/10/2016 8:58 AM EDT Automated LAB Interface Historical Provider MD LAB BLOOD ORDERABLES Ania l Result Performing Organization Address [facility] Co de Phone Number EXTERNAL LAB * OTTR LAB RESULTS (MANUAL) (01/25/2016 4:15 PM EDT) Pathologist [facility] External Prothrombin Time (PT) 11.1 seconds EXTERNAL LAB External INR - Internormal Ratio 1.1 EXTERNAL LAB External Glucose 89 mg/dL EXTERNAL LAB External BUN 19 mg/dL EXTERNAL LAB External Creatinine Blood 1.02 mg/dL EXTERNAL LAB External Sodium (Na) 139 mmol/L EXTERNAL LAB External Potassium (K) 3.9 mmol/L EXTERNAL LAB External Chloride (Cl) 106 mmol/L EXTERNAL LAB External Carbon Dioxide (CO2) 28 mmol/L EXTERNAL LAB External Calcium (Ca) 8.4 mg/dL EXTERNAL LAB External AST (SGOT) 55 units/L EXTERNAL LAB External ALT (SGPT) 71 units/L EXTERNAL LAB External Alkaline Phosphatase 410 U/L EXTERNAL LAB External Bilirubin Total 0.8 mg/dL EXTERNAL LAB External Albumin 3.0 g/dL EXTERNAL LAB External Estimated GFR 80.59 EXTERNAL LAB 01/25/2016 4:15 PM EDT Narrative EXTERNAL LAB - 01/26/2016 11:23 AM EDT [facility] Historical Provider MD LAB BLOOD ORDERABLES Ania l Result EXTERNAL LAB * OTTR LAB RESULTS (MANUAL) (12/27/2015 8:18 AM EDT) External Estimated GFR 103.68 EXTERNAL LAB 12/27/2015 8:18 AM EDT Narrative EXTERNAL LAB - 12/27/2015 9:49 AM EDT Automated LAB Interface Historical Provider MD LAB BLOOD ORDERABLES Ania l Result EXTERNAL LAB * OTTR LAB RESULTS (MANUAL) (11/28/2015 1:49 PM EDT) External Sodium (Na) 140 mmol/L EXTERNAL LAB External Potassium (K) 4.0 mmol/L EXTERNAL LAB External Chloride (Cl) 105 mmol/L EXTERNAL LAB External Carbon Dioxide (CO2) 28 mmol/L EXTERNAL LAB External Glucose 140 mg/dL EXTERNAL LAB External BUN 15 mg/dL EXTERNAL LAB External Creatinine Blood 2.57 mg/dL EXTERNAL LAB External Calcium (Ca) 8.4 mg/dL EXTERNAL LAB External AST (SGOT) 62 units/L EXTERNAL LAB External ALT (SGPT) 72 units/L EXTERNAL LAB External Alkaline Phosphatase 444 U/L EXTERNAL LAB External Bilirubin Total 1.4 mg/dL EXTERNAL LAB External Total Protein 6.7 g/dL EXTERNAL LAB External Albumin 3.0 g/dL EXTERNAL LAB External WBC 6.7 k/uL EXTERNAL LAB External Hemoglobin (Hgb) 13.1 gm/dL EXTERNAL LAB External Hematocrit (Hct) 37.9 % EXTERNAL LAB External Platelet Count (Plt) 172 k/uL EXTERNAL LAB External Estimated GFR 27.85 EXTERNAL LAB 11/28/2015 1:49 PM EDT Narrative EXTERNAL LAB - 12/23/2015 1:51 PM EDT [facility] Historical Provider LAB BLOOD ORDERABLES Ania l Result Performing Organization Address [facility] Co de Phone Number EXTERNAL LAB * OTTR LAB RESULTS (MANUAL) (08/10/2015 1:51 PM EST) External Prothrombin Time (PT) 10.7 seconds EXTERNAL LAB External INR - Internormal Ratio 1.0 EXTERNAL LAB 08/10/2015 1:51 PM EST Narrative EXTERNAL LAB - 12/23/2015 1:52 PM EDT [facility] Historical Provider MD LAB BLOOD ORDERABLES Ania l Result Performing Organization Address [facility] Co de Phone Number EXTERNAL LAB documented in this encounter Visit Diagnoses Not on filedocumented in this encounter Care Teams Wardrobe Specialist Relationship Specialty Start Date End Date Arpti Ramirez MD [address] [place] [address] PCP - General 10/14/20 Joao Tello MD [address] [place] [address] [address] [place] [address] Referring Physician Gastroenterology 01/01/25 documented as of this encounter
--- OUTSIDE RECORDS SUMMARY | 2025-01-05 12:54 | XMS_ITS | Encounter Summary ---
[facility] Organization [facility] Address [address] [place] [address] Care Team Providers Care Fruit Dumper Name Role Phone Syeda Clark MD Primary Care Provider [phone] Encounter Details Date Type Department Care Team (Late st Contact Info) Description 11/11/2024 Results Follow-Up [facility] [address] [address] Michi Torres DO [address] [id number] Social History Tobacco Use Types Packs/Day Years [...] Description 04/05/2025 8:30 AM EST Office Visit [facility] [address] [address] Mariaelena Coyle APRN [address] [id number] documented as of this encounter Visit Diagnoses Not on filedocumented in this encounter Care Teams Fruit Dumper Relationship Specialty Start Date End Date Syeda Clark MD [address] [place] [address] PCP - General Family Medicine 08/21/23 documented as of this encounter
--- OUTSIDE RECORDS SUMMARY | 2025-01-05 12:54 | XMS_ITS | Clinical Summary ---
Author Organization [facility] Address [address] [place] [address] Care Team Providers Care Electrical Panel Builder Name Role Phone Syeda Clark MD Primary Care Provider [phone] Allergies Active Allergy Reactions Criticality Noted Date Comments Hydrocodone Itching Low 09/01/2018 Medications alendronate (FOSAMAX) 70 MG tablet 1 tablet. 4 Active Yggbh-X-Gfwvmczwjmw se (Beano) tablet 4 Active Calcium Carbonate-Vitamin D (CALCIUM 600 +D HIGH POTENCY PO) 4 Active Fiber 500 MG capsule 4 Active Magnesium 400 MG capsule 4 Active mycophenolate (CELLCEPT) 250 MG capsule 1 capsule Every 12 (Twelve) Hours. 4 Active omeprazole (priLOSEC) 40 MG capsule 1 capsule. 6 Active tamsulosin (FLOMAX) 0.4 MG capsule 24 hr capsule 4 Active ursodiol (ACTIGALL) 300 MG capsule 1 capsule. 4 Active traZODone (DESYREL) 50 MG tablet 1 tablet. 4 Active colestipol (COLESTID) 1 g tablet 4 Active predniSONE (DELTASONE) 5 MG tablet Take 1 tablet by mouth Daily. Active multivitamin with minerals (MENS MULTIVITAMIN PO) Take 1 tablet by mouth Daily. 400 mcg-20 mcg-300 mcg Active aspirin 81 MG EC tablet Take 1 tablet by mouth Daily. Active tacrolimus (PROGRAF) 0.5 MG capsule Take 1 capsule by mouth 2 (Two) Times a Day. 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 120 tablet 5 5 Active allopurinol (ZYLOPRIM) 300 MG tablet Take 1 tablet by mouth Daily. 90 tablet 1 5 Active colchicine 0.6 MG tablet TAKE (1) TABLET BY MOUTH TWICE DAILY NEEDED FOR GOUT 60 tablet 5 5 Active Active Problems Problem Noted Date Diagnosed Date Idiopathic chronic gout of multiple sites withou t tophus 12/12/2023 Assessment & Plan (10/01/2024 9:10 AM EDT): 1. Check labs today 2. Refill medications 3. Our goal is to keep his serum uric acid level < 6.0. C 4. We have prescribed him colchicine 0.6 mg twice/day PRN for acute flare ups. 5. Continue allopurinol 300 mg once/day for maintenance Assessment & Plan (04/28/2024 9:23 AM EST): 1. Check labs today 2. Refill medications 3. Our goal is to keep his serum uric acid level < 6.0. C 4. We have prescribed him colchicine 0.6 mg twice/day PRN for acute flare ups. 5. Continue allopurinol 300 mg once/day for maintenance Assessment & Plan (12/12/2023 10:09 AM EDT): 1. Check labs today 2. Refill medications 3. Our goal is to keep his serum uric acid level < 6.0. C 4. We have prescribed him colchicine 0.6 mg twice/day PRN for acute flare ups. 5. Continue allopurinol 300 mg once/day for maintenance Autoimmune hepatitis 12/12/2023 Assessment & Plan (10/01/2024 9:22 AM EDT): Continue prednisone Continue CellCept Continue Tacrolimus He has had a transplant Assessment & Plan (04/28/2024 9:23 AM EST): 1. Check labs today 2. Refill medications 3. Our goal is to keep his serum uric acid level < 6.0. C 4. We have prescribed him colchicine 0.6 mg twice/day PRN for acute flare ups. 5. Continue allopurinol 300 mg once/day for maintenance Assessment & Plan (12/12/2023 10:09 AM EDT): 1. He is on tacrolimus, CellCept and prednisone. 2. He was told to avoid NSAIDS following his transplant 3. He also takes ursodiol Encounter for therapeutic drug monitoring 2023 Assessment & Plan (10/01/2024 9:10 AM EDT): Tramadol 50 mg every 6 hours PRN for pain Pain contract signed 12/12/23 Check TREVOR and Drug screen as required. Drug screen ordered today Assessment & Plan (04/28/2024 9:23 AM EST): Tramadol 50 mg every 6 hours PRN for pain Pain contract signed 12/12/23 Check TREVOR and Drug screen as required. Drug screen ordered today Assessment & Plan (12/12/2023 10:09 AM EDT): Tramadol 50 mg every 6 hours PRN for pain Pain contract signed 12/12/23 Check TREVOR and Drug screen as required. Drug screen ordered today Osteoarthritis 12/11/2023 Assessment & Plan (10/01/2024 9:22 AM EDT): 1. He was told not to take NSAIDs following his liver transplant. 2. We have prescribed him Tramadol. Refill today 3. He has tried taking Tylenol PRN as directed 4. Weight loss would be helpful 5. He has had to have IM Toradol injections 6. He has taken Oxycodone PRN 7. He has seen podiatry for his feet 8. He had a foot injection 9. We referred him to Dr. Moe to evaluate his feet. 10. He has seen a hand surgeon 11. He has had 1st CMC joint injection 12. He has tried using diclofenac gel PRN 13. He has tried orthotics for his feet. Assessment & Plan (04/28/2024 9:34 AM EST): Today he has pain in each thumb/wrist. Left is worse than right. X-ray today. I am certain that this is 1st CMC degenerative arthritis. We will refer to hand surgery to discuss injections and/or surgical options. Assessment & Plan (04/28/2024 9:23 AM EST): 1. He was told not to take NSAIDs following his liver transplant. 2. We have prescribed him Tramadol. Refill today 3. He has tried taking Tylenol PRN as directed 4. Weight loss would be helpful 5. He has had to have IM Toradol injections 6. He has taken Oxycodone PRN 7. He has seen podiatry for his feet 8. He had a foot injection 9. We referred him to Dr. Moe to evaluate his feet. Assessment & Plan (12/12/2023 10:09 AM EDT): 1. He was told not to take NSAIDs following his liver transplant. 2. We have prescribed him Tramadol. Refill today 3. He has tried taking Tylenol PRN as directed 4. Weight loss would be helpful 5. He has had to have IM Toradol injections 6. He has taken Oxycodone PRN 7. He has seen podiatry for his feet 8. He had a foot injection 9. We referred him to Dr. Moe to evaluate his feet. Seropositive rheumatoid arthritis 12/11/2023 Assessment & Plan (10/01/2024 9:22 AM EDT): * 12/08/19: IgA and IgG RF+, CCP negative. * 05/07/2019: CRP > 90 (<10 normal), CCP 15 (0-19), ESR 87 (0-20), VAUGHN negative, Uric acid 4.4 * 03/24/2019 Rib x-rays: nondisplaced fractures of the right anterior six through eight ribs. * 05/04/2019 right foot x-rays: Moderate degenerative changes. No erosions. * Medications/treatments/interventions tried include: Tylenol, Motrin, prednisone, tacrolimus, hydrocodone (Allergic), He has gone to the [facility], oxycodone, CellCept, IM Toradol injection , Tramadol, azathioprine, Toradol IM injection, allopurinol, colchicine, He has seen podiatry. He had a foot injection, He saw an orthopaedic foot/ankle specialist, He saw a hand surgeon, 1st CMC joint injection, Diclofenac gel, orthotics 1. Currently he is on 5 mg/day of prednisone, Tacrolimus, and CellCept for his liver transplant. 2. This regimen has seemed to control his RA as well. 3. We gave him a handout on OA arthritis to take home and review 4. Follow up in 6 months. 5. Check labs today Assessment & Plan (04/28/2024 9:34 AM EST): * 12/08/19: IgA and IgG RF+, CCP negative. * 05/07/2019: CRP > 90 (<10 normal), CCP 15 (0-19), ESR 87 (0-20), VAUGHN negative, Uric acid 4.4 * 03/24/2019 Rib x-rays: nondisplaced fractures of the right anterior six through eight ribs. * 05/04/2019 right foot x-rays: Moderate degenerative changes. No erosions. * Medications/treatments/interventions tried include: Tylenol, Motrin, prednisone, tacrolimus, hydrocodone (Allergic), He has gone to the [facility], oxycodone, CellCept, IM Toradol injection , Tramadol, azathioprine, Toradol IM injection, allopurinol, colchicine, He has seen podiatry. He had a foot injection 1. Currently he is on 5 mg/day of prednisone, Tacrolimus, and CellCept for his liver transplant. 2. This regimen has seemed to control his RA as well. 3. We gave him a handout on RA arthritis to take home and review 4. Follow up in 4 months. 5. Check labs today 6. Today he reports more pain in his thumbs/wrist. We will x-ray today. I think this is 1st CMC joint arthritis. More likely it is degenerative in nature. See below Assessment & Plan (12/12/2023 10:18 AM EDT): * 7/7/20: IgA and IgG RF+, CCP negative. * 05/07/2019: CRP > 90 (<10 normal), CCP 15 (0-19), ESR 87 (0-20), VAUGHN negative, Uric acid 4.4 * 03/24/2019 Rib x-rays: nondisplaced fractures of the right anterior six through eight ribs. * 05/04/2019 right foot x-rays: Moderate degenerative changes. No erosions. * Medications/treatments/interventions tried include: Tylenol, Motrin, prednisone, tacrolimus, hydrocodone (Allergic), He has gone to the [facility], oxycodone, CellCept, IM Toradol injection , Tramadol, azathioprine, Toradol IM injection, allopurinol, colchicine, He has seen podiatry. He had a foot injection 1. Currently he is on 5 mg/day of prednisone, Tacrolimus, and CellCept for his liver transplant. 2. This regimen has seemed to control his RA as well. 3. We gave him a handout on RA arthritis to take home and review 4. Follow up in 4-6 months. 5. Check labs today Resolved Problems Problem Noted Date Diagnosed Date Resolved Date ESR raised 12/11/2023 04/28/2024 CRP elevated 12/11/2023 04/28/2024 Overview (12/11/2023): abnormality Rheumatoid arthritis 12/11/2023 024 Encounters Date Type Department Care Team Description 11/11/2024 Results Follow-Up [facility] [address] [address] Michi Torres, 11/10/2024 Results Follow-Up [facility] [address] [address] Michi Torres, 11/10/2024 Results Follow-Up [facility] [address] [address] Michi Torres, 10/15/2024 8:20 AM EDT Office Visit [facility] [address] [facility] [address] [place] [address] Peng Levy MD Arthritis of carpometacarpal (CMC) joint of right thumb (Primary Dx) 10/15/2024 Travel 10/07/2024 Refill [facility] [address] [place] [address] Michi Torres DO from Last 3 Months Immunizations Immunization Administration Dates Next Due COVID-19 (UNSPECIFIED) 12/03/2020,11/02/2020 Influenza, Unspecified 03/12/2021 Family History Medical History Relation Name Comments Cancer Brother Jude Chavez Lung Arthritis Father Logan Chavez Cancer Father Logan Chavez Lung and brai n cancer Arthritis Mother Bambi Chavez Osteoporosis Mother Bambi Chavez Cancer Sister 1 Maureen Causey Breast Osteoporosis Sister 2 Katelin Mckenna Relation Name Status Comments Brother Jude Chavez Father Logan Chavez Mother Bambi Chavez Sister 1 Maureen Causey Sister 2 Katelin Mckenna Social History Tobacco Use Types Packs/Day Years Used Date Smoking Tobacco: Never Passive Smoke Exposure: Past Smokeless Tobacco: Never Tobacco Cessation:Counseling Given: Not Answered Alcohol Use Standard Drinks/Week Comments Never 0 (1 standard drink = 0.6 oz pur e alcohol) Sex and Gender Information Value Date Recorded Sex Assigned at Male 09/23/2023 12:22 PM EDT Legal Sex Male 11:58 AM EDT Gender Identity Male 09/23/2023 12:22 PM EDT Sexual Orientation Not on file Last Filed Vital Signs Vital Sign Reading Time Taken Comments Blood Pressure 136/76 10/15/2024 8:02 AM EDT Pulse 64 10/01/2024 8:51 AM EDT Temperature 36.5 C (97.7 F) 10/01/2024 8:51 AM EDT Respiratory Rate - - Oxygen Saturation - - Inhaled Oxygen Concentration - - Weight 107 kg (236 lb 11.2 oz) 10/15/2024 8:02 A M EDT Height 177.8 cm (5' 10 ) 10/15/2024 8:02 AM EDT Body Mass Index 33.96 10/15/2024 8:02 AM EDT Plan of Treatment Upcoming Encounters Date Type Department Care Team (Late st Contact Info) Description 04/05/2025 8:30 AM EST Office Visit [facility] [address] [place] [address] Mariaelena Coyle APRN [address] [facility] [address] [place] [address] Health Maintenance Due Date Last Done Comments COLOGUARD 2006 COLON CANCER SCREENING 5 YEA R SIGMOIDOSCOPY [address] COLONOGRAPHY 2006 FECAL OCCULT BLOOD TEST 2006 FIT Testing (1 year) 2006 ANNUAL PHYSICAL 01/11/2020 Hepatitis B (1 of 3 - Risk 3 -dose series) 2021 Pneumococcal Vaccine 50+ (3 of 3 - PPSV23, PCV20 or PCV21) 09/11/2023 09/10/2018, 07/09/2018 COVID-19 Vaccine (6 - 2023-2 5 season) 2024 04/30/2021, 12/26/2020, 12/06/2020, Additional history exists INFLUENZA VACCINE 03/03/2025 04/08/2023, , 03/12/2021, Additional history exists COLONOSCOPY 10/08/2027 10/07/2017 COLORECTAL CANCER SCREENING 10/08/2027 TDAP/TD VACCINES (3 - Td or Tdap) 05/30/2028 018, 05/30/2018 HEPATITIS C SCREENING Completed 11/10/2018 , 11/10/2018, 11/10/2018, Additional history exists ZOSTER VACCINE Completed 06/05/2019, 03/23/2019 Procedures Procedure Name Priority Date/Time Associated Diagnosis Comments SCANNED - LABS 11/07/2024 SCANNED - LABS 11/06/2024 SCANNED - LABS 10/29/2024 CA ARTHROCENTESIS ASPIR&/INJ SMALL JT/BURSA W/O US Routine 10/15/2024 8:22 AM EDT Arthritis of carpometacarpal (CMC) joint of right thumb from Last 3 Months Results * LABS SCANNED (11/07/2024) Only the most recent of3 resultswithin the time period is included. Result [facility] Michi Longfield DO LAB BLOOD ORDERABLES F inal Result * CA ARTHROCENTESIS ASPIR&/INJ SMALL JT/BURSA W/O US (10/15/2024 8:22 AM EDT) Narrative Jazzy Centeno [facility] - 10/15/2024 8:22 AM EDT JacoboJazzy henning [facility] 10/15/2024 8:40 AM - Small Joint Arthrocentesis: R thumb CMC on 10/15/2024 8:22 AM Indications: pain Details: 25 G needle, radial approach Medications: 0.5 mL lidocaine PF 1% 1 %; 20 mg triamcinolone acetonide 40 MG/ML Outcome: tolerated well, no immediate complications Procedure, treatment alternatives, risks and benefits explained, specific risks discussed. Consent was given by the patient. Immediately prior to procedure a time out was called to verify the correct patient, procedure, equipment, operations support representative and site/side marked as required. Patient was prepped and draped in the usual sterile fashion. Peng Levy MD PROCEDURE/MINOR SURGICAL ORDERABLES Final Result from Last 3 Months Insurance EMPLOYEE Member Subscriber Plan / Payer (Ef fective 2014-Present) Name:Olman Chavez Relation to Subscriber:Self Name:Olman Chavez Payer ID:[id number] (IC) Type:Not on file Address: [facility] [id number] [place] [id number] Care Teams Electrical Panel Builder Relationship Specialty Start Date End Date Syeda Clark MD [address] [facility] [place] [id number] PCP - General Family Medicine 08/21/23
--- OUTSIDE RECORDS SUMMARY | 2025-01-05 12:54 | XMS_ITS | Clinical Summary ---
Author Organization Healthcare Address [address] [place] [address] Care Team Providers Care Upper Cutter Out Name Role Phone Arpit Ramirez MD Primary Care Provider Joao Tello MD Unavailable [phone] Encounters Date Type Department Care Team Description 01/01/2025 Telephone [facility] [address] [place] [phone] Lavinia Garcia Referral - Liver Txp (Post Liver Transfer of Care ) 12/30/2024 Community Orders [facility] [address] [place] [address] Joao Tello MD Liver replaced by transplant (CMS/HCC) (Primary Dx) from Last 3 Months Immunizations Immunization Administration Dates Next Due Pneumococcal Conjugate PCV 13 07/09/2018 Pneumococcal Polysaccharide PPV23 09/10/2018 Family History Medical History Relation Name Comments Other cancer Father Hypertension Mother Relation Name Status Comments Father Mother Social History Tobacco Use Types Packs/Day Years Used Date Smoking Tobacco: Former Alcohol Use Standard Drinks/Week Comments No 0 (1 standard drink = 0.6 oz pure alcohol) Alcoholic Drinks/day: Never Drank Alcohol Sex and Gender Information Value Date Recorded Sex Assigned at Not on file Legal Sex Male 7:33 PM EDT Gender Identity Not on file Sexual Orientation Not on file Last Filed Vital Signs Vital Sign Reading Time Taken Comments Blood Pressure 125/80 07/21/2018 8:03 AM EST Pulse 67 07/21/2018 8:03 AM EST Temperature - - Respiratory Rate - - Oxygen Saturation - - Inhaled Oxygen Concentration - - Weight 94.6 kg (208 lb 8.9 oz) 07/21/2018 8:03 A M EST Height 177.2 cm (5' 9.75 ) 07/21/2018 8:03 AM ES T Body Mass Index 30.14 07/21/2018 8:03 AM EST Plan of Treatment Health Maintenance Due Date Last Done Comments [facility]-Depression Screening 1961 [facility]-/Child/Adol SDOH Screenings 1961 [facility]- SDOH Screenings 1979 [facility]-Adult SDOH Screenings 1979 [facility]-DTaP,Tdap,and Td Vaccine s (1 - Tdap) 1980 CT Colonography 2006 FIT-DNA 2006 FIT 2006 FOBT 2006 Sigmoidoscopy 2006 [facility]-Zoster Vaccines (1 of 2) 2011 [facility]-Pneumococcal Vaccine: 50 + Years (3 of 3 - PCV20 or PCV21) 09/11/2023 09/10/2018, 07/09/2018 [id number] Vaccine (1 - 2023- season) 2024 [facility]-Influenza Vaccine (#1) 2025 Colonoscopy 10/08/2027 10/07/2017 [facility]-Colorectal Cancer Screening 10/08/2027 [facility]-RSV Vaccine: 60+ Years o r (1 - 1-dose 75+ series) 2036 HPV Vaccines Aged Out No longer eligi ble based on patient's age to complete this topic [facility]-HIB Vaccines Aged Out No longer e ligible based on patient's age to complete this topic [facility]-Hepatitis A Vaccines Aged Out No longer eligible based on patient's age to complete this topic [facility]-IPV Vaccines Aged Out No longer e ligible based on patient's age to complete this topic [facility]-Rotavirus Vaccines Aged Out No lo nger eligible based on patient's age to complete this topic Procedures Procedure Name Priority Date/Time Associated Diagnosis Comments COLONOSCOPY 10/07/2017 from Last 3 Months or Most Recently Relevant to Health Maintenance Results * COLONOSCOPY (10/07/2017) Anatomical Region Laterality Modality Endoscopy Narrative 10/07/2017 Ordered by an unspecified provider. us Historical Provider GI PROCEDURE ORDERABLES F inal Result from Last 3 Months or Most Recently Relevant to Health Maintenance Insurance [facility] Care Teams Upper Cutter Out Relationship Specialty Start Date End Date Arpit Ramirez MD [address] [facility] [place] [address] PCP - General 10/14/20 Joao Tello MD [address] [facility] [address] [place] [address] Referring Physician Gastroenterology 01/01/25
--- OUTSIDE RECORDS SUMMARY | 2025-01-05 12:54 | XMS_ITS | Encounter Summary ---
Author Organization [facility] Address [address] [place] [address] Care Team Providers Care Services Coordinator Name Role Phone Arpit Ramirez MD Primary Care Provider [phone] Joao Tello MD Unavailable [phone] Reason for Referral * Transplant (Routine) - Pending Review Specialty Diagnoses / Procedures Referred By Contac t Referred To Contact Transplant Surgery / Transplant Diagnoses Liver replaced by transplant (CMS/HCC) Joao Tello MD [address] [place] [address] Phone: tel: fax: Referral ID Status Reason Start Date Expiration Date Visits Requested Visits Authorized [id number] Pending Review Specialty Services Required 12/30/2024 07/01/[phone] Encounter Details Date Type Department Care Team (Late st Contact Info) Description 12/30/2024 Community [facility] [address] [place] [address] Joao Tello MD [address] [facility] [address] [place] [address] Liver replaced by transplant (CMS/HCC) (Primary Dx) Social History Tobacco Use Types [...] as of this encounter Plan of Treatment Scheduled Referrals Name Type Priority Associated Diagnoses Order Schedule Ambulatory referral to Liver Transplant Team Outpatient Referral Routine Liver replaced by transplant (CMS/HCC) Expected: 12/30/2024 (Approximate), Expires: 07/03/2026 documented as of this encounter Visit Diagnoses Diagnosis Liver replaced by transplant (CMS/HCC)- Primary Liver replaced by transplant documented in this encounter Care Teams Services Coordinator Relationship Specialty Start Date End Date Arpit Ramirez MD [address] [facility] [place] [address] PCP - General 10/14/20 Joao Tello MD [address] [facility] [address] [place] [address] Referring Physician Gastroenterology 01/01/25 documented as of this encounter
--- OUTSIDE RECORDS SUMMARY | 2025-01-05 12:54 | XMS_ITS | Encounter Summary ---
Author Organization Healthcare Address [address] [place] [address] Care Team Providers Care Transfer Pumper Name Role Phone Arpit Ramirez MD Primary Care Provider Joao Tello MD Unavailable [phone] Encounter Details Date Type Department Care Team (Late st Contact Info) Description 05/30/2018 [facility] Encounter Historical OTTR [address] [place] [address] Fede Cheatham RN [facility] Social History Tobacco Use Types Packs/Day Years Used Date Smoking Tobacco: Never Assessed Sex and Gender Information Value Date Recorded Sex Assigned at Not on file Legal Sex Male 7:33 PM EDT Gender Identity Not on file Sexual Orientation Not on file documented as of this encounter Miscellaneous Notes * Progress Notes - Doretha Bryant - 10/06/2018 9:20 AM EDT Order for EGD sent to [facility] for scheduling. * Progress Notes - Rickey Mejia MD - 10/06/2018 8:45 AM EDT DOS 10/21/2018 EGD Pt has [employer] [place] [employer] [id number] ref # [id number] updating iAuth and nurse. * Progress Notes - Fabio Villanueva - 10/01/2018 9:19 AM EDT Doinf well, NaMELD of 12. on INH and vit B6 for latent TB at least for 4-6 weeks Needs non urgent repeat EGD, please schedule * Progress Notes - Elva Talley - 09/22/2018 2:32 PM EDT Appt in ID on 09/24 cxd per pt request. * Progress Notes - Rm West - 09/15/2018 10:55 AM EDT 09 September 2018: 58 year old male, PSC/AIH overlap syndrome, with decompensated cirrhosis, listed for liver transplant here and listing in progress with live donor at [facility]. MELD score today is 15. He is medically stable today, but complains of emotional lability recently without depressionor suicidal ideation. He had lots of FMLA paperwork today which I completed. 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 He mentioned that his way back from [facility] a Nurse there called and told him his TB test was positive. The patient does not recall having any lung imaging done up there and it's been since last year since we did any here (CT, was normal).No cough or night sweats, no hemoptysis, He says he was told this was latent . 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 He is also immunosuppressed by virtue of being on prednisone and azathioprine. He needs a mask and a CXR today, just as a precaution. CXR ordered. Mansi is working an ID referral for treatment. Also, it appears he is due for repeat EGD in October. He is not aware that this has been scheduled. Mansi, please schedule EGD for October. I asked him to schedule an appointment with a mental health professional. He was very open tothis and will contact the practice where his goes in [place]. RTC for previously scheduled appt on 01 October. He mentioned having lots of additional disability paperwork. If that's the case, have this scheduled as a stand alone appointment in a consult room, not part of a medical follow up. * Progress Notes - Doretha Bryant - 09/09/2018 4:25 PM EDT Pt will need update Complete ECHO and CTA at . * Progress Notes - Doretha Bryant - 09/09/2018 4:06 PM EDT Order in [facility] for consult for transplant hepatology - Dr. Grewal. Will update BB to schedule mandy. * Progress Notes - Rm West - 09/09/2018 11:24 AM EDT Mr Priscila Nazario is concerned that his testing tomorrow may be duplicating tests he already had at [facility] and is asking if he needs to have these tomorrow as planned. Can you see what is scheduled here and determine if we have records from [place] that may preclude the need to repeat here, then let him know? * Progress Notes - DurhamSeptember - 09/08/2018 4:24 PM EDT Spoke to patient added to 09/09 clinic arriving 7:45 Labs/9:00 Hep. Patient is also scheduled for Labs/Testing on 09/10. Labs cancelled on 09/10 and patient will check in directly with Cardiology at 9:00am. He confirmed and voiced understanding. * Progress Notes - Doretha Bryant - 09/08/2018 12:37 PM EDT Received email from pt wanting to schedule appt w/ provider to discuss concerns regarding health. Pt scheduled for 09/09 @ 7:45...pt confirmed appt date and time. * Progress Notes - Mindy Padilla - 09/05/2018 1:23 PM EDT Emailed ID records to Dr. Grewal and requested consult. * Progress Notes - Mindy Padilla - 09/05/2018 12:08 PM EDT Rec'd ph call from Elba at [facility]. She adv that [facility] ID states we need to email Dr. Richardson directly to obtain an appointment earlier than . She will email me notes from [facility] ID, and I will foward to Dr. Grewal. * Progress Notes - Fede Cheatham - 09/04/2018 8:57 AM EDT Recieved call from Elba - pt's coordinator at [facility] - stating pt tested positive for latent TB. ID physician is planning 2 months of treatment. Elba will notify primary coordinator when definite treatment plan in place. * Progress Notes - Rosa Flaherty - 09/03/2018 2:35 PM EDT Nurse Coordinator from [facility] called - faxing infectious disease results - requesting a call to discuss potential poc regarding results. Note to MLP * Progress Notes - Fabio Villanueva - 08/15/2018 2:45 PM EDT MRCP reviewed. no change in meds, continue to monitor LFTs and will consider decreasing prednisone to 2.5mg if LFTs improve * Progress Notes - Doretha Bryant - 08/15/2018 10:27 AM EDT Will review MRCP with FS. * Progress Notes - Rickey Mejia MD - 08/14/2018 11:31 AM EDT DOS 09/10/[address] Liver and CT Chest Cardiac Coronary liver txp eval LAC plan code NPR updating iAuth and nurse. * Progress Notes - Fabio Villanueva - 08/06/2018 1:34 PM EST MELD 14, stable, getting MRCP today. Also going to [place] to get evaluated Insurence denied living donor at [place]. Will consider decreasing prednisone to 2.5 if LFTs improve * Progress Notes - Elva Talley - 08/04/2018 10:48 AM EST Spoke to pt about adding Renal US to 08/06 appts and request for Urology Consult at . Pt stated that he had the Renal US done this morning and was getting ready to see a Urologist in just a few mins there locally. Let him know that I would cancel the US on 08/06 and the request for Urology Consult here at . Pt verbalized understanding. * Progress Notes - Elva Talley - 07/31/2018 3:09 PM EST Renal US added to pt's testing and MD visit on 08/06 at 2:15pm. Spoke to manager adobe in Urology who hassent an overbook request to PREPARATION ROOM MANAGER coordinator. They will call back with appt. Will update pt. * Progress Notes - Doretha Bryant - 07/31/2018 2:08 PM EST Received call from coordinator from [facility]. Pt needs renal US and urology consult to complete eval for Live donor at [facility]. Order in [facility] for urgent urology consult and bilat renal ultrasound. Will update BB to schedule and update pt. * Progress Notes - Rickey Mejia MD - 07/21/2018 9:51 AM EST DOS 08/06/2018 MRI Abd W WO W MRCP liver txp eval LAC plan code NPR updating IAuth and nurse, * Progress Notes - Elva Talley - 07/11/2018 12:27 PM EST Pt is scheduled for Labs/Echo/CTA, CT Liver, and CT Chest on 09/10 arriving at Transplant at 8:15am.Spoke to the pt and confirmed this date and time with him. Mailing schedule for pt's review. Pt verbalized understanding. * Progress Notes - Doretha Bryant - 07/09/2018 10:56 AM EST June 2018 SRTR, patient selection criteria, and Patient Acknowledgement Form mailed to pt with request for completion and return to transplant center. * Progress Notes - Doretha Bryant - 07/02/2018 10:19 AM EST Orders in [facility] for Gregoria pre op annual labs and test. Will update BB to schedule and update pt on date and time. * Progress Notes - Elva Talley - 06/20/2018 1:03 PM EST Pt is scheduled for Nephrology Consult on 07/21 at 8:00am. Spoke to the pt and confirmed this date and time with him. Mailing reminder for his review. Pt verbalized understanding. * Progress Notes - Doretha Bryant - 06/19/2018 2:42 PM EST Order in [facility] for nephrology consult for bone clinic. WIll update BB to schedule and update pt. * Progress Notes - Elva Talley - 06/16/2018 10:40 AM EST Spoke to pt and confirmed Labs/MRI Abd/Hep on 08/06 at 7:00am. Cxd additional fu appt on 08/08. Pt verbalized understanding. * Progress Notes - Darling Mcfarlane - 06/13/2018 12:58 PM EST 57 year old male with biopsy demonstrated 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 Listed for liver transplant. MELD 14 (INR 112, Cr 0.95, Na 135, Bili 3.3) 1. Autoimmune Hepatitis -on imuran 150 mg daily and prednisone 5.0mg daily; -Per record review, his last biopsy [...] normal August 2017 -repeat liver biopsy here 09/26/17 - marked interface changes and prominent ductular reaction Plan --recent spike in liver enzymes and bili, but this likley more due to PSC (see below) --continue to follow with dermatology given assisted imuran therapy 2. Primary Sclerosing Cholangitis -has [...] Saturday after a recent hospital admission at [facility] (we were on divert here at ) [...] ER should they occur --check CMP in 2-3 weeks --continue q6 monthly MRCP with CA 19.9 --will consider discontinuing ursodiol, as it is not indicated in PSC but for now given recent spike in liver enzymes will leave on ursodiol 1200 mg/daily,, which is appropriate for weight 3. Cirrhosis --MELD labs today --listed for liver transplant # Ascites - controlled today, During his hospitalization in January 2018 he had paracentesis with about a liter removed. His weight is down 5 pounds since last visit. . He is on furosemide 40 mg and spironolactone 100 mg daily. No hx of SBP. --continue diuretics at current dose --discussed importance of 2gNa diet restriction #Variceal [...] needed for itching, educated on side effects. --continue hydroxyzine 25 mg QID --continue cerave itch cream as prescribed by dermatology 5. Cystic Kidney - has been following with food general manager for renal cyst- has been stable for [...] at least 30 minutes after taking --decrease prednisone as able, I'm not decreasing today given his liver enzymes are overall higher (but stable) --refer to bone clinic 7. Insomnia --hydroxyzine as above; did not like trazodone due to drowsiness #Health Maintenance: --immune to HAV/HBV --colonoscopy completed 10/07/17 with tubular adenoma Transplant Status: listed for liver transplant. Pt going to [facility] on 07/07/18 - 07/11/18 RTC in 8 weeks. * Progress Notes - Doretha Bryant - 06/09/2018 11:31 AM EST Will review labs with MMG * Progress Notes - Jose Lavinia Tana - 06/06/2018 11:53 AM EST Left message for pt's regarding appt on 08/06/18 arriving at 7:00 for labs/MRI ABD/hep. Advised pt needs to be NPO after midnight the night before. Appt letter previously mailed per CBB. Requestedreturn call to confirm appt. * Progress Notes - Doretha Bryant - 06/05/2018 1:07 PM EST Received call from pt...did not go to [place]...pt states he bent over the other day and felt a pop, thought he cracked another rib . Pt denies SOA or any further trauma. Pt states he will get rptlabs in the am. Will update MMG. * Progress Notes - Fede Cheatham - 05/30/2018 11:21 AM EST Spoke w/ pt who states he is leaving Saturday for [facility] where he will go through evaluationtesting for living donor. I gave him our fax number so they can fax lab and test results. Pt advised he made some changes in his diet and itching has improved. Also denies fever, chills, abd pain, etc. * Progress Notes - Darling Mcfarlane - 05/29/2018 2:55 PM EST lets have ptient repeat CMP, CBC, INR this coming week (week of 06/02). i called him but no answer as far as intchign goes we could start sertraline or doxepin but doxepin may make him drowsy. if we're able to contact patient, please find out any fevers, chills, abdominal pain, etc. Thanks! * Progress Notes - Doretha Bryant - 05/26/2018 9:47 AM EST Will review labs with MMG. Pt c/o increased itching. * Progress Notes - Doretha Bryant - 05/23/2018 1:34 PM EST Pt to go to [facility] for evaluation to go on living donor list. * Progress Notes - Darling Mcfarlane - 05/02/2018 3:01 PM EST labs reviewed. No change. Repeat in 2 weeks. * Progress Notes - Doretha Bryant - 05/02/2018 2:36 PM EST Will review labs with MMG * Progress Notes - Doretha Bryant - 05/01/2018 4:16 PM EST Pt left vm stating he was having increased itching and c/o prostate pain. Discussed with MMG....Regarding itching - let's have him update labs, increased itching in a PSC patient could be a sign of cholangitis. His bili may be coming up. He needs CBC, CMP, INR. There isn't much to do for the itching at this point other than starting an antidepressant. It's okay for him to take two doses of the hydroxyzine. Prostate pain - I'm not sure what to think about this. have him follow-up with PCP. Pt verbalized understanding. * Progress Notes - Darling Mcfarlane - 04/23/2018 12:47 PM EST Labs improving. notified patient updated labs in 1 month * Progress Notes - Darling Mcfarlane - 04/18/2018 7:25 AM EST bili increased, enzymes mildly increased. Spoke with patient, states he feels great, no abdominal pain, no fevers. WBC is normal. Will start metronizazole x 7 days, patient to repeat CBC, CMP, INR, and IgG on Monday 04/23 * Progress Notes - Doretha Bryant - 04/17/2018 11:53 AM EST Will review labs with MMG * Progress Notes - Doretha Bryant - 04/11/2018 3:30 PM EST Spoke with pt instructed to rpt labs next week. * Progress Notes - Darling Mcfarlane - 04/07/2018 4:10 PM EST repeat labs in 1 week * Progress Notes - Doretha Bryant - 04/07/2018 4:04 PM EST Will review labs with MMG. * Progress Notes - Darling Mcfarlane - 04/07/2018 1:31 PM EST patient due for repeat CMP, CBC and INR. Thanks! * Progress Notes - Anjana Coyle - 02/24/2018 2:21 PM EDT rpt mri\mrcp 6 mos with ca 19.9 * Progress Notes - Celsa Carrera - 02/24/2018 11:20 AM EDT Discuss MRI results with the group, thanks * Progress Notes - Rickey Mejia MD - 02/14/2018 1:35 PM EDT DOS 02/21/2018 MRCP ABD W WO NO DEVICES SCM lver txp exal LAC plan code NPR, updating nurse and IAuth * Progress Notes - Elva Talley - 02/06/2018 2:02 PM EDT Spoke with pt about sooner MRI/MRCP Abd than 03/28. There is a cancelation on 02/21 at 11:15am. Pt says this date should be fine if he can find a sub. Will check in with pt tomorrow per his request, to confirm for sure. Update: Pt called back and left confirming 02/21 MRI. Mailing schedule for his review. * Progress Notes - Doretha Bryant - 02/06/2018 1:28 PM EDT Per MMG note above pt needs MRI/MRCP before Mar 28. Will update BB to schedule sooner and update pt. * Progress Notes - Doretha Bryant - 02/06/2018 12:24 PM EDT Received listing approval from [facility]. Auth # [id number]. Exp 01/31/2019 * Progress Notes - Leola Mirza - 01/31/2018 10:45 AM EDT Mr Chavez has MD appt added to his schedule for MRPC and lab time changed. Appt 03/28, please update schedule. * Progress Notes - Doretha Bryant - 01/28/2018 3:46 PM EDT LMN and clinical faxed to insurance for listing approval. * Progress Notes - Doretha Bryant - 01/28/2018 3:42 PM EDT Orders in [facility] for Mar. Will update BB to schedule and update pt. * Progress Notes - Elva Talley - 01/21/2018 2:56 PM EDT Spoke to the pt about appt on 01/24 at 7:30am in txp clinic. Pt is on his way to [facility] to have labs drawn and get checked out. He confirmed appt on Saturday and verbalized understanding. * Progress Notes - Elva Talley - 01/21/2018 1:57 PM EDT Pt's called to see if we could move his 01/28 appt up to tomorrow. Pt is not doing well and sheis very worried about him. Pt has abdominal swelling, slight fever, and has been unable to work thelast few days. Pt's is going to try and get him in with his GI doctor, but agreed to let me have his nurse coordinator call to check in. Note to MVG. Pt's verbalized understanding. * Progress Notes - Elva Talley - 12/31/2017 10:29 AM EDT Per MVG moved pt's appt up a month from 02/21 to 01/28 at 8:00am. Tried to reach the pt's , but had to leave a vm with appt info. Mailing reminder for pt's review. Requested call back to confirm. * Progress Notes - Doretha Bryant - 12/31/2017 8:46 AM EDT Will ask BB to r/s Sept appt for 4 wks and update pt. Needs to be seen sooner d/t new onset encephalopathy * Progress Notes - Doretha Bryant - 12/27/2017 9:05 AM EDT Pt seen in ER for HE...started on Lactulose * Progress Notes - Mindy Padilla - 12/26/2017 8:15 PM EDT Rec'd ph call from patient . She adv patient starting to show signs of HE and has worsened throughout the day. She will take him to local ED ([place]) * Progress Notes - Rm West - 11/25/2017 3:53 PM EDT 19 November 2017: 57 year old male with PSC/AIH overlap and associated cirrhosis, listing on hold due to continued tobacco use. MELD 14 today. He is motivated and ready to stop tobacco now. I consulted via phone with Corina and based on that converation, decided to tailor approach to patient using Chantix and Nicotine Lozenge. Sent Rx for Chantix started pack to take for 1 month as directed. 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 RTC in 2 months for follow up. For right now continue on prednisone 7.5mg daily along with current dose of Azathioprine. * Progress Notes - Doretha Bryant - 11/19/2017 4:39 PM EDT Spoke with pt...instructe to start Chantix, and Nicotine Lozenges 2mg and use as directed for the next month to help alleviate his nicotine craving. Pt verbalized understanding. * Progress Notes - Rm West - 11/19/2017 12:57 PM EDT Mansi, can you contact Mr. Chavez and tell him I've changed plans slightly with our effort to help him get of smokeless tobacco. I want him to take Chantix, which is a tablet. I sent an Rx for a starter pack which he will take daily for one month, then refill with the continuation dose daily for2 months. At the same time, I recommend he get Nicotine Lozenges at his local pharmacy, 2mg and useas directed for the next month to help alleviate his nicotine craving and to address the oral habitof using the tobacco. The lozenges will be an OTC product not covered by insurance but should be offset by the cost of the tobacco. Please contact me if he has any questions, I will be happy to provide further guidance. * Progress Notes - Doretha Bryant - 11/05/2017 4:14 PM EDT Spoke with pt...instructed to decrease prednisone to 7.5 mg daily. Pt verbalized understanding. * Progress Notes - Darling Mcfarlane - 11/04/2017 5:06 PM EDT Have patient decrease prednisone to 7.5 mg daily. Will follow up labs in clinic on 11/19. * Progress Notes - Doretha Bryant - 11/04/2017 9:57 AM EDT Will review labs with MMG * Progress Notes - Doretha Bryant - 10/31/2017 3:09 PM EDT Will ask front end developer to book lab only appt 11/01 at 11am. * Progress Notes - Darling Mcfarlane - 10/17/2017 3:15 PM EDT Spoke with patient about results from Liver biopsy. Will have him decrease pred to 10 mg daily. he wants to come in to get labs on 11/11 - he needs CMP, CBC, IgG, INR Discussed constipation. Advised to drink plenty of water. Can take docusate sodium 100 mg BID and either ducolax or mag citrate as needed for constipation Follows up in clnic on 11/19. * Progress Notes - Darling Mcfalrane - 10/10/2017 3:09 PM EDT Angelina all! Would someone please review liver biopsy from 09/23/2017? Clinic info: 57 yo WM with diagnosis of AIH/PSC overlap. Referred from Dr. Tello. On imuran 100 mg daily and prednisone 15 mg daily for past 6 years (at least) Has osteoporosis. Repeat Liver biopsy from 09/23/17 with interface changes, no mention of plasmas cells Most recent labs on 09/17/17 with AST 55, ALT 68, ALP 335, bili 3.1 and IgG 1205. Any thoughts? Do you think we can start decreasing prednisone? * Progress Notes - Doretha Bryant - 09/26/2017 11:24 AM EDT Will review liver bx with MMG. * Progress Notes - Kathy Bah - 09/16/2017 2:04 PM EDT DOS 09/25/17 [place] [id number], [id number], NPR evonne Campuzano at [facility] ref# [id number]. Nurse, IR and anna updated. * Progress Notes - Elva Talley - 09/16/2017 12:31 PM EDT Pt is scheduled for Transjugular Liver Biopsy on 09/25 at 8:30am. NPO after midnight, pt will need adriver, and hold blood thinners and aspirin 5 days prior. Spoke to the pt and confirmed this date and time with him. Mailing schedule for his review. Pt verbalized understanding. Email sent to JAYSHREE [email or web address] on pre-cert. * Progress Notes - Elva Talley - 09/12/2017 9:01 AM EDT Forms faxed to IR for Transjugular Liver Biopsy. * Progress Notes - Doretha Bryant - 09/10/2017 3:53 PM EDT Orders in [facility] for Transjugular liver biopsy....Sedation form in All Docs. Will ask BB to schedule and contact pt with date and time. * Progress Notes - Doretha Bryant - 09/10/2017 3:52 PM EDT Dental clearance in All Docs * Progress Notes - Darling Mcfarlane - 09/09/2017 8:01 AM EDT patient unable to complete percutaneous liver biopsy this AM due to ascites. Please scheduled for Transjugular liver biopsy. Thank you! * Progress Notes - Social Mayur Ojeda - 09/05/2017 1:15 PM EDT SW evaluation completed. OK to list when he stops smokeless tobacco. Full report in [facility] and All [facility]. * Progress Notes - Leola Mirza - 09/03/2017 9:01 AM EDT pt dropped off Dental Clearance Form. Scanned into OTTR and sent for scanning into EMR. VG notified * Progress Notes - Rm West - 08/26/2017 2:30 PM EDT 23 August 2017: Cirrhosis, decompensated, secondary to PSC/AIH overlap syndrome, MELD today 17, not listed but evaluation planned beginning on 02 September. Esophageal Varices, grade 1 non bleeding and PHG, last EGD December, Primary Sclerosing Cholangitis/Autoimmune Hepatitis Overlap Syndrome, on Azathioprine 150mg daily and Prednisone 15mg daily, past hx of biliary stenting X1, no evidence of acuteobstruction at present. Ascites, appears controlled at present, without history of SBP.Has been followed by food general manager for renal cyst- has been stable for 3 years as per him. US renal Apr 04, 2016 -Small atrophic left kidney. Normal right kidney with no suspicious masses or sonographically detecta ble calculi. No hydronephrosis. Eval to include MRI/MRCP to evaluate liver for HCC and bile ducts, continued surveillance for Cholangiocarcinoma, Calcium and Vit D supplements daily and Vit D level here on eval lab, Repeat EGD and Colonoscopy here next month for varices surveillance. I believe thisis already scheduled. Low sodium diet and adequate protein intake. Will need Dietitian consult during eval, RTC in about 2 weeks. At that time we will review testing done and if necessary adjust diuretics. * Progress Notes - Doretha Bryant - 08/15/2017 2:42 PM EDT Order for Liver bx, EGD, colonoscopy sent to [facility] for scheduling. * Progress Notes - Doretha Bryant - 08/09/2017 4:08 PM EST Will review latest labs with MMG...Mg level 1.9. Will discuss c/o leg cramps with MMG. * Progress Notes - Doretha Bryant - 08/08/2017 12:51 PM EST Discussed leg cramps with MMG...will get updated labs with Mg level. Pt verbalized understanding. * Progress Notes - Doretha Bryant - 08/08/2017 12:49 PM EST Received liver bx slides from [facility] for pathology review. * Progress Notes - [place] AetnaElva hawk Crescencio - 08/06/2017 3:35 PM EST Pt is scheduled for Standard Liver Eval on 09/03 arriving at Transplant at 9:45am and 09/05 arriving atTransplant at 10:15am. Spoke to the pt and confirmed these dates and times with him. Mailing schedules via [employer] w/ Tracking No. [id number]. Pt also requested call from the nurse regarding leg cramps. I told him I would have MVG contact him when she had a chance. He verbalized understanding. * Progress Notes - Elva Talley - 08/06/2017 8:45 AM EST Pt called and left vm requesting call from the nurse. He states that he has been having terrible cramps that start at night and are so bad he is unable to sleep. He would like to know what can be done. He can be reached between 11:15-12:30 or after 3:00pm. * Progress Notes - Darling Mcfarlane - 08/02/2017 3:35 PM EST reviewed outside records. 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 Will ask BB to schedule and update pt on dates and times. 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 * Progress Notes - Doretha Bryant - 08/01/2017 3:45 PM EST Recieved Colon/EGD/Path from referring physician....reports in All Docs. Will review with provider if repeat testing is needed. * Progress Notes - Doretha Bryant - 08/01/2017 3:33 PM EST Faxed request for Liver Biopsy slides to [facility] - attn: Cele fax [phone] * Progress Notes - Doretha Bryant - 07/30/2017 3:37 PM EST Spoke with pt regarding c/o's of low BP. Pt states he has started following low Na diet and since then he has dropped his BP a few times in low 100's/40's, experienced symptoms of lightheaded, dizzy,feelings of passing out. Discussed with MMG...will decrease Lasix to 20mg/daily and spironolactone to 50mg/daily, watch wt gains, and follow low Na diet. Pt verbalized understanding. * Progress Notes - Provider, MD Rickey - 07/30/2017 8:48 AM EST Clear to evaluate. * Progress Notes - Gregoria Durham - 07/30/2017 8:09 AM EST Patient called to follow up on meds prescribed by on 07/26. Should be sent to [facility] in [place]. Also wanted to advise that BP has been lower than usual. Suggested he call his PCP for follow up. He will check w/pharmacy. He verbalized understanding. * Progress Notes - Anjana Coyle - 07/29/2017 1:43 PM EST start eval * Progress Notes - Darling Mcfarlane - 07/27/2017 3:52 PM EST Mansi, I placed the orders for the labs I wanted - we just need to make sure it's scheduled for his RTC date. * Progress Notes - Elva Talley - 07/11/2017 3:14 PM EST Called and spoke to pt about Labs/Hep on 07/26 at 8:00am. Let him know reminder was on its way. Pt verbalized understanding. * Progress Notes - Rosa Flaherty - 07/11/2017 8:51 AM EST Records from Virginie Car received - saved in AllDocs. * Progress Notes - Rosa Flaherty - 07/09/2017 4:43 PM EST Conversation with Virginie Car and [facility] - request for Mr Chavez to be seen in Txp for follow upas he is beginning to show decompensation. Requested updated records to be faxed. Per [facility] - schedule Mr Chavez for lab/Hep for consideration for txp evaluation - scheduled for 07/26 at 8am for labs/9:20 for MMG as she was the last md to see Mr Chavez. Mailed appointment reminder. Notified Virginie's office - lvm. Note to MVG/CBB. documented in this encounter Plan of Treatment Not on file documented as of this encounter Procedures Procedure Name Priority Date/Time Associated Diagnosis Comments OTTR LAB RESULTS (MANUAL) Routine 09/09/2018 7:38 AM EDT OTTR LAB RESULTS (MANUAL) Routine 08/06/2018 7:03 AM EST OTTR LAB RESULTS (MANUAL) Routine 07/07/2018 12:00 AM EST OTTR LAB RESULTS (MANUAL) Routine 06/13/2018 9:00 AM EST OTTR LAB RESULTS (MANUAL) Routine 06/06/2018 9:23 AM EST OTTR LAB RESULTS (MANUAL) Routine 05/24/2018 11:20 AM EST OTTR LAB RESULTS (MANUAL) Routine 05/02/2018 7:03 AM EST OTTR LAB RESULTS (MANUAL) Routine 04/23/2018 8:07 AM EST OTTR LAB RESULTS (MANUAL) Routine 04/15/2018 4:29 PM EST OTTR LAB RESULTS (MANUAL) Routine 04/05/2018 1:49 PM EDT OTTR LAB RESULTS (MANUAL) Routine 03/28/2018 8:50 AM EDT OTTR LAB RESULTS (MANUAL) Routine 01/31/2018 8:18 AM EDT OTTR LAB RESULTS (MANUAL) Routine 01/01/2018 8:55 AM EDT OTTR LAB RESULTS (MANUAL) Routine 12/26/2017 8:23 PM EDT OTTR LAB RESULTS (MANUAL) Routine 11/19/2017 9:15 AM EDT OTTR LAB RESULTS (MANUAL) Routine 09/17/2017 7:18 AM EDT OTTR LAB RESULTS (MANUAL) Routine 09/03/2017 12:29 PM EDT OTTR LAB RESULTS (MANUAL) Routine 09/03/2017 9:12 AM EDT OTTR LAB RESULTS (MANUAL) Routine 08/23/2017 7:58 AM EDT OTTR LAB RESULTS (MANUAL) Routine 08/09/2017 4:05 PM EST OTTR LAB RESULTS (MANUAL) Routine 07/03/2017 8:47 AM EST documented in this encounter Results * OTTR LAB RESULTS (MANUAL) (09/09/2018 7:38 AM EDT) External Estimated GFR 83.79 EXTERNAL LAB 09/09/2018 7:38 AM EDT Narrative EXTERNAL LAB - 09/09/2018 8:47 AM EDT Automated LAB Interface us Historical Provider MD LAB BLOOD ORDERABLES Ania l Result Performing Organization Address City/[facility]/ZIP Co de Phone Number EXTERNAL LAB * OTTR LAB RESULTS (MANUAL) (08/06/2018 7:03 AM EST) External Estimated GFR 93.64 EXTERNAL LAB 08/06/2018 7:03 AM EST Narrative EXTERNAL LAB - 08/06/2018 8:21 AM EST Automated LAB Interface us Historical Provider MD LAB BLOOD ORDERABLES Ania l Result EXTERNAL LAB * OTTR LAB RESULTS (MANUAL) (07/07/2018 12:00 AM EST) External WBC 4.48 k/uL EXTERNAL LAB External Hemoglobin (Hgb) 13.3 gm/dL EXTERNAL LAB External Hematocrit (Hct) 37.7 % EXTERNAL LAB External Platelet Count (Plt) 186 k/uL EXTERNAL LAB External Glucose 84 mg/dL EXTERNAL LAB External BUN 20 mg/dL EXTERNAL LAB External Creatinine Blood 0.90 mg/dL EXTERNAL LAB External Sodium (Na) 138 mmol/L EXTERNAL LAB External Potassium (K) 4.3 mmol/L EXTERNAL LAB External Chloride (Cl) 103 mmol/L EXTERNAL LAB External Carbon Dioxide (CO2) 24 mmol/L EXTERNAL LAB External Calcium (Ca) 9.5 mg/dL EXTERNAL LAB External AST (SGOT) 73 units/L EXTERNAL LAB External ALT (SGPT) 74 units/L EXTERNAL LAB External Alkaline Phosphatase 445 U/L EXTERNAL LAB External Bilirubin Total 3.1 mg/dL EXTERNAL LAB External Albumin 3.4 g/dL EXTERNAL LAB External Prothrombin Time (PT) 11.4 seconds EXTERNAL LAB External INR - Internormal Ratio 1.1 EXTERNAL LAB External Estimated GFR 92.44 EXTERNAL LAB 07/07/2018 Narrative EXTERNAL LAB - 07/11/2018 11:33 AM EST Other Historical Provider MD LAB BLOOD ORDERABLES Ania l Result Performing Organization Address City/[facility]/ZIP Co de Phone Number EXTERNAL LAB * OTTR LAB RESULTS (MANUAL) (06/13/2018 9:00 AM EST) External Estimated GFR 86.85 EXTERNAL LAB 06/13/2018 9:00 AM EST Narrative EXTERNAL LAB - 06/13/2018 10:12 AM EST Automated LAB Interface Historical Provider MD LAB BLOOD ORDERABLES Ania l Result EXTERNAL LAB * OTTR LAB RESULTS (MANUAL) (06/06/2018 9:23 AM EST) External WBC 6.0 k/uL EXTERNAL LAB External Hemoglobin (Hgb) 12.3 gm/dL EXTERNAL LAB External Hematocrit (Hct) 34.1 % EXTERNAL LAB External Platelet Count (Plt) 181 k/uL EXTERNAL LAB External Prothrombin Time (PT) 11.4 seconds EXTERNAL LAB External INR - Internormal Ratio 1.1 EXTERNAL LAB External Glucose 94 mg/dL EXTERNAL LAB External BUN 24 mg/dL EXTERNAL LAB External Creatinine Blood 1.06 mg/dL EXTERNAL LAB External Sodium (Na) 134 mmol/L EXTERNAL LAB External Potassium (K) 3.9 mmol/L EXTERNAL LAB External Chloride (Cl) 100 mmol/L EXTERNAL LAB External Carbon Dioxide (CO2) 29 mmol/L EXTERNAL LAB External Calcium (Ca) 8.7 mg/dL EXTERNAL LAB External AST (SGOT) 77 units/L EXTERNAL LAB External ALT (SGPT) 98 units/L EXTERNAL LAB External Alkaline Phosphatase 485 U/L EXTERNAL LAB External Bilirubin Total 2.6 mg/dL EXTERNAL LAB External Albumin 2.5 g/dL EXTERNAL LAB External Estimated GFR 76.54 EXTERNAL LAB 06/06/2018 9:23 AM EST Narrative EXTERNAL LAB - 06/09/2018 11:30 AM EST [place] us Historical Provider LAB BLOOD ORDERABLES Ania l Result EXTERNAL LAB * OTTR LAB RESULTS (MANUAL) (05/24/2018 11:20 AM EST) External WBC 5.3 k/uL EXTERNAL LAB External Hemoglobin (Hgb) 12.7 gm/dL EXTERNAL LAB External Hematocrit (Hct) 35.2 % EXTERNAL LAB External Platelet Count (Plt) 197 k/uL EXTERNAL LAB External Prothrombin Time (PT) 11.3 seconds EXTERNAL LAB External INR - Internormal Ratio 1.1 EXTERNAL LAB External Glucose 102 mg/dL EXTERNAL LAB External BUN 25 mg/dL EXTERNAL LAB External Creatinine Blood 1.10 mg/dL EXTERNAL LAB External Sodium (Na) 136 mmol/L EXTERNAL LAB External Potassium (K) 3.9 mmol/L EXTERNAL LAB External Chloride (Cl) 101 mmol/L EXTERNAL LAB External Carbon Dioxide (CO2) 28 mmol/L EXTERNAL LAB External Calcium (Ca) 8.7 mg/dL EXTERNAL LAB External AST (SGOT) 85 units/L EXTERNAL LAB External ALT (SGPT) 119 units/L EXTERNAL LAB External Alkaline Phosphatase 547 U/L EXTERNAL LAB External Bilirubin Total 3.2 mg/dL EXTERNAL LAB External Albumin 2.7 g/dL EXTERNAL LAB External Estimated GFR 73.33 EXTERNAL LAB 05/24/2018 11:2 0 AM EST Narrative EXTERNAL LAB - 05/26/2018 9:47 AM EST [place] Historical Provider MD LAB BLOOD ORDERABLES Ania l Result EXTERNAL LAB * OTTR LAB RESULTS (MANUAL) (05/02/2018 7:03 AM EST) External Estimated GFR 90.13 EXTERNAL LAB 05/02/2018 7:03 AM EST Narrative EXTERNAL LAB - 05/02/2018 7:48 AM EST Automated LAB Interface Historical Provider MD LAB BLOOD ORDERABLES Ania l Result Performing Organization Address City/[facility]/ZIP Co de Phone Number EXTERNAL LAB * OTTR LAB RESULTS (MANUAL) (04/23/2018 8:07 AM EST) External Estimated GFR 91.27 EXTERNAL LAB 04/23/2018 8:07 AM EST Narrative EXTERNAL LAB - 04/23/2018 11:06 AM EST Automated LAB Interface Historical Provider LAB BLOOD ORDERABLES Ania l Result Performing Organization Address [facility] Co de Phone Number EXTERNAL LAB * OTTR LAB RESULTS (MANUAL) (04/15/2018 4:29 PM EST) External WBC 6.0 k/uL EXTERNAL LAB External Hemoglobin (Hgb) 12.2 gm/dL EXTERNAL LAB External Hematocrit (Hct) 34.9 % EXTERNAL LAB External Platelet Count (Plt) 190 k/uL EXTERNAL LAB External Prothrombin Time (PT) 12.0 seconds EXTERNAL LAB External INR - Internormal Ratio 1.2 EXTERNAL LAB External Glucose 107 mg/dL EXTERNAL LAB External BUN 23 mg/dL EXTERNAL LAB External Creatinine Blood 1.34 mg/dL EXTERNAL LAB External Sodium (Na) 136 mmol/L EXTERNAL LAB External Potassium (K) 4.2 mmol/L EXTERNAL LAB External Chloride (Cl) 99 mmol/L EXTERNAL LAB External Carbon Dioxide (CO2) 30 mmol/L EXTERNAL LAB External Calcium (Ca) 9.0 mg/dL EXTERNAL LAB External AST (SGOT) 85 units/L EXTERNAL LAB External ALT (SGPT) 103 units/L EXTERNAL LAB External Alkaline Phosphatase 472 U/L EXTERNAL LAB External Bilirubin Total 7.2 mg/dL EXTERNAL LAB External Albumin 2.9 g/dL EXTERNAL LAB External Estimated GFR 58.40 EXTERNAL LAB 04/15/2018 4:29 PM EST Narrative EXTERNAL LAB - 04/17/2018 11:53 AM EST [place] Historical Provider LAB BLOOD ORDERABLES Ania l Result EXTERNAL LAB * OTTR LAB RESULTS (MANUAL) (04/05/2018 1:49 PM EDT) External WBC 5.9 k/uL EXTERNAL LAB External Hemoglobin (Hgb) 13.5 gm/dL EXTERNAL LAB External Hematocrit (Hct) 38.4 % EXTERNAL LAB External Platelet Count (Plt) 196 k/uL EXTERNAL LAB External Prothrombin Time (PT) 11.8 seconds EXTERNAL LAB External INR - Internormal Ratio 1.2 EXTERNAL LAB External Glucose 85 mg/dL EXTERNAL LAB External BUN 21 mg/dL EXTERNAL LAB External Creatinine Blood 1.08 mg/dL EXTERNAL LAB External Sodium (Na) 138 mmol/L EXTERNAL LAB External Potassium (K) 3.7 mmol/L EXTERNAL LAB External Chloride (Cl) 101 mmol/L EXTERNAL LAB External Carbon Dioxide (CO2) 28 mmol/L EXTERNAL LAB External Calcium (Ca) 9.0 mg/dL EXTERNAL LAB External AST (SGOT) 86 units/L EXTERNAL LAB External ALT (SGPT) 101 units/L EXTERNAL LAB External Alkaline Phosphatase 513 U/L EXTERNAL LAB External Bilirubin Total 3.2 mg/dL EXTERNAL LAB External Albumin 3.0 g/dL EXTERNAL LAB External Estimated GFR 74.90 EXTERNAL LAB 04/05/2018 1:49 PM EDT Narrative EXTERNAL LAB - 04/07/2018 4:04 PM EST [place] Historical Provider LAB BLOOD ORDERABLES Aina l Result EXTERNAL LAB * OTTR LAB RESULTS (MANUAL) (03/28/2018 8:50 AM EDT) External Estimated GFR 105.90 EXTERNAL LAB 03/28/2018 8:50 AM EDT Narrative EXTERNAL LAB - 03/28/2018 10:04 AM EDT Automated LAB Interface Historical Provider LAB BLOOD ORDERABLES Ania l Result EXTERNAL LAB * OTTR LAB RESULTS (MANUAL) (01/31/2018 8:18 AM EDT) External Estimated GFR 102.93 EXTERNAL LAB 01/31/2018 8:18 AM EDT Narrative EXTERNAL LAB - 01/31/2018 9:28 AM EDT Automated LAB Interface Historical Provider LAB BLOOD ORDERABLES Ania l Result Performing Organization Address City/[facility]/ZIP Co de Phone Number EXTERNAL LAB * OTTR LAB RESULTS (MANUAL) (01/01/2018 8:55 AM EDT) External WBC 5.3 k/uL EXTERNAL LAB External Hemoglobin (Hgb) 11.9 gm/dL EXTERNAL LAB External Hematocrit (Hct) 34.3 % EXTERNAL LAB External Platelet Count (Plt) 165 k/uL EXTERNAL LAB External Prothrombin Time (PT) 11.8 seconds EXTERNAL LAB External INR - Internormal Ratio 1.2 EXTERNAL LAB External Glucose 90 mg/dL EXTERNAL LAB External BUN 16 mg/dL EXTERNAL LAB External Creatinine Blood 0.86 mg/dL EXTERNAL LAB External Sodium (Na) 137 mmol/L EXTERNAL LAB External Potassium (K) 3.9 mmol/L EXTERNAL LAB External Chloride (Cl) 104 mmol/L EXTERNAL LAB External Carbon Dioxide (CO2) 27 mmol/L EXTERNAL LAB External Calcium (Ca) 8.7 mg/dL EXTERNAL LAB External AST (SGOT) 80 units/L EXTERNAL LAB External ALT (SGPT) 102 units/L EXTERNAL LAB External Alkaline Phosphatase 444 U/L EXTERNAL LAB External Bilirubin Total 3.0 mg/dL EXTERNAL LAB External Albumin 2.5 g/dL EXTERNAL LAB External Estimated GFR 97.42 EXTERNAL LAB 01/01/2018 8:55 AM EDT Narrative EXTERNAL LAB - 01/08/2018 8:47 PM EDT [place] Historical Provider MD LAB BLOOD ORDERABLES Ania l Result EXTERNAL LAB * OTTR LAB RESULTS (MANUAL) (12/26/2017 8:23 PM EDT) External Estimated GFR 104.39 EXTERNAL LAB 12/26/2017 8:23 PM EDT Narrative EXTERNAL LAB - 12/26/2017 9:35 PM EDT Automated LAB Interface Historical Provider MD LAB BLOOD ORDERABLES Ania l Result Performing Organization Address City/[facility]/ZIP Co de Phone Number EXTERNAL LAB * OTTR LAB RESULTS (MANUAL) (11/19/2017 9:15 AM EDT) Pathologist [facility] External Estimated GFR 109.43 EXTERNAL LAB 11/19/2017 9:15 AM EDT Narrative EXTERNAL LAB - 11/19/2017 10:26 AM EDT Automated LAB Interface Historical Provider MD LAB BLOOD ORDERABLES Ania l Result Performing Organization Address [facility]/ZIP Co de Phone Number EXTERNAL LAB * OTTR LAB RESULTS (MANUAL) (09/17/2017 7:18 AM EDT) Pathologist [facility] External Estimated GFR 126.07 EXTERNAL LAB 09/17/2017 7:18 AM EDT Narrative EXTERNAL LAB - 09/17/2017 8:46 AM EDT Automated LAB Interface Historical Provider MD LAB BLOOD ORDERABLES Ania l Result Performing Organization Address City/[facility]/ZIP Co de Phone Number EXTERNAL LAB * OTTR LAB RESULTS (MANUAL) (09/03/2017 12:29 PM EDT) Pathologist [facility] External Herpes Simplex Virus 1 IgG Ab (HSV1Ab) <0.90 EXTERNAL LAB External Herpes Simplex Virus 2 IgG Ab (HSV2Ab) <0.90 EXTERNAL LAB 09/03/2017 12:2 9 PM EDT Narrative EXTERNAL LAB - 09/09/2017 12:29 PM EDT [place] Historical Provider MD LAB BLOOD ORDERABLES Ania l Result EXTERNAL LAB * OTTR LAB RESULTS (MANUAL) (09/03/2017 9:12 AM EDT) Pathologist [facility] External Estimated GFR 128.21 EXTERNAL LAB 09/03/2017 9:12 AM EDT Narrative EXTERNAL LAB - 09/03/2017 11:51 AM EDT Automated LAB Interface Historical Provider MD LAB BLOOD ORDERABLES Ania l Result EXTERNAL LAB * OTTR LAB RESULTS (MANUAL) (08/23/2017 7:58 AM EDT) Pathologist [facility] External Estimated GFR 107.84 EXTERNAL LAB 08/23/2017 7:58 AM EDT Narrative EXTERNAL LAB - 08/23/2017 9:13 AM EDT Automated LAB Interface Historical Provider MD LAB BLOOD ORDERABLES Ania l Result EXTERNAL LAB * OTTR LAB RESULTS (MANUAL) (08/09/2017 4:05 PM EST) Pathologist [facility] External WBC 8.6 k/uL EXTERNAL LAB External Hemoglobin (Hgb) 12.3 gm/dL EXTERNAL LAB External Hematocrit (Hct) 35.1 % EXTERNAL LAB External Platelet Count (Plt) 253 k/uL EXTERNAL LAB External Prothrombin Time (PT) 12.3 seconds EXTERNAL LAB External INR - Internormal Ratio 1.2 EXTERNAL LAB External Glucose 94 mg/dL EXTERNAL LAB External BUN 27 mg/dL EXTERNAL LAB External Creatinine Blood 1.12 mg/dL EXTERNAL LAB External Sodium (Na) 131 mmol/L EXTERNAL LAB External Potassium (K) 3.9 mmol/L EXTERNAL LAB External Chloride (Cl) 95 mmol/L EXTERNAL LAB External Carbon Dioxide (CO2) 29 mmol/L EXTERNAL LAB External Calcium (Ca) 9.0 mg/dL EXTERNAL LAB External AST (SGOT) 77 units/L EXTERNAL LAB External ALT (SGPT) 113 units/L EXTERNAL LAB External Alkaline Phosphatase 488 U/L EXTERNAL LAB External Bilirubin Total 3.1 mg/dL EXTERNAL LAB External Albumin 2.9 g/dL EXTERNAL LAB External Estimated GFR 72.08 EXTERNAL LAB 08/09/2017 4:05 PM EST Narrative EXTERNAL LAB - 08/09/2017 4:07 PM EST [place] us Historical Provider LAB BLOOD ORDERABLES Ania l Result EXTERNAL LAB * OTTR LAB RESULTS (MANUAL) (07/03/2017 8:47 AM EST) External Glucose 98 mg/dL EXTERNAL LAB External BUN 19 mg/dL EXTERNAL LAB External Creatinine Blood 1.07 mg/dL EXTERNAL LAB External Sodium (Na) 143 mmol/L EXTERNAL LAB External Potassium (K) 3.6 mmol/L EXTERNAL LAB External Chloride (Cl) 106 mmol/L EXTERNAL LAB External Carbon Dioxide (CO2) 28 mmol/L EXTERNAL LAB External Calcium (Ca) 8.9 mg/dL EXTERNAL LAB External AST (SGOT) 87 units/L EXTERNAL LAB External ALT (SGPT) 115 units/L EXTERNAL LAB External Alkaline Phosphatase 480 U/L EXTERNAL LAB External Bilirubin Total 2.8 mg/dL EXTERNAL LAB External Total Protein 6.6 g/dL EXTERNAL LAB External Albumin 2.8 g/dL EXTERNAL LAB External WBC 7.2 k/uL EXTERNAL LAB External Hemoglobin (Hgb) 11.8 gm/dL EXTERNAL LAB External Hematocrit (Hct) 35.1 % EXTERNAL LAB External Platelet Count (Plt) 235 k/uL EXTERNAL LAB External Prothrombin Time (PT) 11.6 seconds EXTERNAL LAB External INR - Internormal Ratio 1.1 EXTERNAL LAB External Estimated GFR 75.98 EXTERNAL LAB 07/03/2017 8:47 AM EST Narrative EXTERNAL LAB - 07/11/2017 8:49 AM EST [place] Historical Provider LAB BLOOD ORDERABLES Ania l Result EXTERNAL LAB documented in this encounter Visit Diagnoses Not on filedocumented in this encounter Care Teams Transfer Pumper Relationship Specialty Start Date End Date Arpit Ramirez MD [address] [place] [id number] PCP - General 10/14/20 Joao Tello MD [address] [place] [id number] Referring Physician Gastroenterology 01/01/25 documented as of this encounter
--- OUTSIDE RECORDS SUMMARY | 2025-01-05 12:54 | XMS_ITS | Encounter Summary ---
Author Organization [facility] Address [address] [place] [address] Care Team Providers Care Farm General Manager Name Role Phone Arpit Ramirez MD Primary Care Provider [phone] Joao Tello MD Unavailable [phone] Reason for Visit * Reason Comments Referral - Liver Txp Post Liver Transfer of Care Encounter Details Date Type Department Care Team (Late st Contact Info) Description 01/01/2025 Telephone [facility] [address] [facility] [address] [place] [phone] Lavinia Garcia [place] [phone] Referral - Liver Txp (Post Liver Transfer of Care ) Social History Tobacco Use Types Packs/Day Years [...] encounter Miscellaneous Notes * Telephone Encounter - Lavinia Garcia - 01/01/2025 11:47 AM EDT New post liver transfer of care referral from Dr. Oscar Tello. documented in this encounter Plan of Treatment Not on file documented as of this encounter Visit Diagnoses Not on filedocumented in this encounter Care Teams Farm General Manager Relationship Specialty Start Date End Date Arpit Ramirez MD [address] [place] [address] PCP - General 10/14/20 Joao Tello MD [address] [place] [id number] Referring Physician Gastroenterology 01/01/25 documented as of this encounter
== END 2025-01-05 23:59 | disposition home or self-care (01) ==
LOC: DIETICIAN 12:50
PROVIDERS: PCP Family Medicine; Visit Provider Internal Medicine Gastroenterology
DX: E74.31 Sucrase-isomaltase deficiency (principal)
CPT/HCPCS: 97802